=== PATIENT | male | born 1950 | race Caucasian/White ===

== ENCOUNTER 2018-10-17 08:32 | Day surgery (SDC) | payer MEDICARE ==
[2018-10-17] MEDS ORDERED: CEFAZOLIN 1GM (PREMIX IV) 1 GM/50 ML BAG ONE (09:12)
[2018-10-17] MEDS ORDERED: NA CHLORIDE 0.9% 1,000 ML ONE (09:12)
[2018-10-17] MEDS ORDERED: LIDOCAINE 1% W/EPI 1:100,000 MDV 50 ML VIAL ONE (09:28)
[2018-10-17 09:56] LABS: Urine Appearance CLEAR; Urine Bilirubin NEGATIVE (NEG); Urine Blood NEGATIVE (NEG); Urine Color YELLOW; Urine Glucose NEGATIVE (NEG); Urine Protein NEGATIVE (NEG); Urine Urobilinogen 0.2 mg/dL (0.2-1.0)
--- OUTSIDE RECORDS SUMMARY | 2018-10-17 10:00 | XMS REPORT | Continuity of Care Document ---
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 Juvenile Resolved 04/14/20 Problem 10/01/2017 Data periodontitis<sup>8 15 migrated Medical </sup> from [facility]ity on 05/07/15. 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 03/28/20 Condition 04/14/2015 DIABETES 15 Medical Group DIABETIC PERIPHERAL Active 03/28/20 Condition 04/14/2015 NEUROPATHY 15 Medical Group DIABETES MELLITUS, Active 03/28/20 Condition 04/14/2015 MH TYPE II, 15 Medical CONTROLLED, W/RENAL Group COMPS KIDNEY DISEASE, Active 03/28/20 Condition 04/14/2015 CHRONIC, STAGE III 15 Medical Group RETINOPATHY, Active 03/28/20 Condition 04/14/2015 DIABETIC, 15 Medical BACKGROUND Group DIABETES MELLITUS, Active 03/28/20 Condition 04/14/2015 MH TYPE II, 15 Medical CONTROLLED, Group W/OPHTHALMIC COMPS URINARY TRACT Active 03/28/20 Condition 04/14/2015 INFECTION 15 Medical Group BENIGN PROSTATIC Active 03/28/20 Condition 04/14/2015 HYPERTROPHY, WITH 15 Medical OBSTRUCTION Group Benign prostatic Resolved 03/28/20 Problem 10/01/2017 Data hypertrophy with 15 migrated Medical outflow from [facility] obstruction<sup>1, Centricity 2</sup> on 04/09/15. Chronic kidney Active 03/28/20 Problem 10/01/2017 Data disease stage 15 migrated Medical 3<sup>3</sup> from [facility]ricity on 04/09/15. Diabetic oculopathy Resolved 03/28/20 Problem 10/01/2017 Data MH associated with 15 migrated Medical type 2 diabetes from [facility] mellitus<sup>4</sup Centricity > on 04/09/15. Diabetic peripheral Active 03/28/20 Problem 10/01/2017 Data neuropathy<sup>5</s 15 migrated Medical up> from [facility] Centricity on 04/09/15. Diabetic Resolved 03/28/20 Problem 10/01/2017 Data polyneuropathy<sup> 15 migrated Medical 6</sup> from [facility] Centricity on 04/09/15. Nonproliferative Resolved 03/28/20 Problem 09/17/2017 Data diabetic 15 migrated Medical retinopathy<sup>9</ from [facility] sup> Centricity on 04/09/15. Urinary tract Active 03/28/20 Problem 09/17/2017 Data infectious 15 migrated Medical disease<sup>11, from [facility] 12</sup> Centricity on 04/09/15. Benign prostatic Resolved 03/28/20 Problem 04/14/2018 Data hypertrophy with 15 migrated Medical outflow from [facility] obstruction<sup>3, Centricity 4</sup> on 04/09/15. Chronic kidney Active 03/28/20 Problem 04/14/2018 Data disease stage 15 migrated Medical 3<sup>7</sup> from [facility]ricity on 04/09/15. Diabetic oculopathy Active 03/28/20 Problem 04/14/2018 Data MH associated with 15 migrated Medical type 2 diabetes from [facility] mellitus<sup>8</sup Centricity > on 04/09/15. Diabetic peripheral Active 03/28/20 Problem 04/14/2018 Data neuropathy<sup>9</s 15 migrated Medical up> from [facility] Centricity on 04/09/15. Diabetic Resolved 03/28/20 Problem 04/14/2018 Data polyneuropathy<sup> 15 migrated Medical 10</sup> from [facility] Centricity on 04/09/15. Nonproliferative Resolved 03/28/20 Problem 04/14/2018 Data diabetic 15 migrated Medical retinopathy<sup>14< from [facility] /sup> Centricity on 04/09/15. Urinary tract Active 03/28/20 Problem 04/14/2018 Data infectious 15 migrated Medical disease<sup>17, from [facility] 18</sup> Centricity on 04/09/15. Nonproliferative Resolved 03/28/20 Problem 10/01/2017 Data diabetic 15 migrated Medical retinopathy<sup>10< from [facility] /sup> Centricity on 04/09/15. Urinary tract Active 03/28/20 Problem 10/01/2017 Data infectious 15 migrated Medical disease<sup>13, from [facility] 14</sup> Centricity on 04/09/15. LOWER LIMB Active 01/17/20 Condition 04/14/2015 AMPUTATION, FOOT 15 Medical Group RENAL FAILURE, Inactive 01/17/20 Condition 04/14/2015 ACUTE 15 Medical Group Acute renal failure Resolved 01/17/20 Problem 04/14/2018 Data syndrome<sup>1, 15 migrated Medical 2</sup> from [facility] Centricity on 03/04/15. LT FOOT INFECTED Active 12/27/19 [place] 15 [place] DIABETIC FOOT Active 12/27/19 [place] INFECTION 15 Land CELLULITIS/ABSCESS, Inactive 11/06/19 Condition 04/14/2015 TOE NOS 15 [facility] Group Cellulitis and Resolved 11/06/19 Problem 04/14/2018 Data abscess of 15 migrated Medical toe<sup>5, 6</sup> from [facility] on 03/04/15. SINUSITIS, ACUTE Inactive 11/15/19 Condition 04/14/2015 14 Medical Group ERECTILE Active 11/27/19 Condition 04/14/2015 DYSFUNCTION 13 Medical Group Impotence<sup>7</dsouza Resolved 11/27/19 Problem 10/01/2017 Data p> 13 migrated Medical from [facility] Centricity on 03/01/15. Impotence<sup>11</s Resolved 11/27/19 Problem 04/14/2018 Data up> 13 migrated Medical from [facility] Centricity on 03/01/15. DIABETES MELLITUS Inactive Condition 04/14/2015 Medical Group PERIPHERAL Active Condition 04/14/2015 NEUROPATHY Medical Group DIABETES MELLITUS, Inactive Condition 04/14/2015 TYPE II, Medical UNCONTROLLED Group DIABETES Inactive Condition 04/14/2015 MELLITUS,TYPE Medical II,UNCONTROLLED Group W/NEURO COMPLICATIONS Diabetes Resolved Problem 04/14/2018 Medical Group,[facility] [place] HTN - Hypertension Resolved Problem 04/14/2018 Medical Group, [place] Neurologic disorder Resolved Problem 09/17/2017 Data associated with migrated Medical type 2 diabetes from [facility] mellitus<sup>8</sup Centricity > on 03/01/15. Neuropathic pain Resolved Problem 04/14/2018 Medical Group, [place] Obesity Active Problem 04/14/2018 Medical Group Peripheral nerve Resolved Problem 09/17/2017 Data disease<sup>10</sup migrated Medical > from [facility] Centricity on 03/01/15. Skin cancer Resolved Problem 04/14/2018 Medical Group, [place] Carcinomas, basal Active Problem 04/14/2018 cell Medical Group Low HDL (<span Active Problem 04/14/2018 ID="[id number]">C Medical onfirmed</span>) Group Status post Active Problem 04/14/2018 transmetatarsal Medical amputation of left Group foot Mixed Active Problem 04/14/2018 hyperlipidemia Medical Group Foot neuralgia Active Problem 04/14/2018 Medical Group Neurologic disorder Resolved Problem 04/14/2018 Data MH associated with migrated Medical type 2 diabetes from [facility] mellitus<sup>13</dsouza Centricity p> on 03/01/15. Peripheral nerve Active Problem 04/14/2018 Data disease<sup>15</sup migrated Medical > from [facility] Centricity on 03/01/15. Type II diabetes Resolved Problem 04/14/2018 Data mellitus migrated Medical uncontrolled<sup>16 from [facility] </sup> Centricity on 03/01/15. Neurologic disorder Resolved Problem 10/01/2017 Data associated with migrated Medical type 2 diabetes from [facility] mellitus<sup>9</sup Centricity > on 03/01/15. Peripheral nerve Resolved Problem 10/01/2017 Data disease<sup>11</sup migrated Medical > from [facility] Centricity on 03/01/15. Type II diabetes Resolved Problem 10/01/2017 Data mellitus migrated Medical uncontrolled<sup>12 from [facility] </sup> Centricity on 03/01/15. ADMINISTRTVE Active Sugar ENCOUNT NOS [place] Medications Medication Details Route Status Patient Ordering Order Source Instructions Provider Date gabapentin 300 MG 300 mg=1 cap, Active 04/11/ Oral Capsule PO, BID, # 180 2018 Medical cap, 1 Group Refill(s), Pharmacy: [facility] 546 Multi Vitamin+ 0 Refill(s) Active 02/21/ 2018 Medical Group gabapentin 300 MG 300 mg=1 cap, Active 09/28/ MH Oral Capsule PO, BID, 2017 Medical increase by 1 Group weekly if needed up to qid., # 180 cap, 1 Refill(s), Pharmacy: [facility] 546 metroNIDAZOLE 250 250 mg=1 tab, Active MH mg oral tablet PO, TID, X 7 2016 Medical day, # 21 tab, 0 Group Refill(s), Pharmacy: [facility] 546 Haylee-D 12 Hour 1 tab, PO, Q12H, Active Allergy & 0 Refill(s) 2016 Medical Congestion Group AMOXICILLIN 250 1 by mouth twice Active MG CAPS daily 2014 Medical Group ACETAMINOPHEN-COD 1 BY MOUTH Active EINE #3 300-30 MG NEEDED FOR PAIN 2014 Medical TABS Group CIPRO 500 MG TABS 1 tablet q18 No Longer 03/28/ hours Active 2014 Medical Group Amoxicillin 500 1 tab, PO, Q12H, Active Sugar MG / Clavulanate # 20 tab, 0 2014 [place] 125 MG Oral Refill(s) Tablet [Augmentin 500-mg] Insulin Syringes 1 syr, SUB-Q, Active Sugar (U 100) ONCALL, # 100 2014 [place] syr, 0 Refill(s) insulin isophane 10 unit, SUB-Q, Active Sugar human recombinant Q12H, # 10 ml, 0 2014 [facility] 100 units/mL Refill(s) subcutaneous injection saxagliptin 2.5 2.5 mg=1 tab, Active Sugar MG Oral Tablet PO, Daily, # 30 2014 Land [Onglyza] tab, 0 Refill(s) tamsulosin 0.4 mg 0.4 mg=1 cap, Active Sugar oral capsule PO, After 2014 Land Dinner, # 30 cap, 0 Refill(s) metoprolol 50 mg=1 tab, PO, Active Sugar tartrate 50 mg BID, # 60 tab, 1 2014 [facility] oral tablet Refill(s) simvastatin 10 mg 10 mg=1 tab, PO, Active Sugar oral tablet Bedtime, # 30 2014 [facility] tab, 0 Refill(s) Aspirin 81 MG 81 mg=1 tab, PO, Active Sugar Enteric Coated Daily, # 0 tab, 2014 [facility] Tablet 0 Refill(s) Amoxicillin 500 1 tab, PO, Q12H, Inactive Sugar MG / Clavulanate # 20 tab, 0 2014 [facility] 125 MG Oral Refill(s) Tablet [Augmentin 500-mg] NS 1,000 mL 1,000 mL, Rate: Inactive Sugar 100 ml/hr, 2014 [facility] Infuse over: 10 hr, Route: IV, Dosing Weight 92.1 kg, Total Volume: 1,000, Start date: 01/08/15 12:10:00, Duration: 30 day, Stop date: 02/07/15 12:09:00 NOVOLIN R RELION 10 u 2x daily Active 100 UNIT/ML SOLN 2014 Medical Group METOPROLOL 1 BY MOUTH DAILY Active TARTRATE 50 MG 2014 Medical TABS Group METOPROLOL 1 BY MOUTH DAILY Active TARTRATE 50 MG 2014 Medical TABS Group NOVOLIN N RELION 10 U 2x daily Active 100 UNIT/ML SUSP 2014 Medical Group METOPROLOL 1 BY MOUTH DAILY Active TARTRATE 50 MG 2014 Medical TABS Group metoprolol 100 mg, 1 tab, No Longer Sugar tartrate Route: PO, Drug Active 2014 [place] form: TAB, [id number], Dosing Weight 92.1, kg, Start date: 01/07/15 12:00:00, Duration: 30 day, Stop date: 02/06/15 0:00:00Notes: (Same as: Lopressor) Amoxicillin 500 1 tab, Route: No Longer Sugar MG / Clavulanate PO, Drug Form: Active 2014 [facility] 125 MG Oral TAB, Dosing Tablet [Augmentin Weight 92.1, kg, 500-mg] Q12H, Start date: 01/06/15 21:00:00, Duration: 30 day, Stop date: 02/05/15 9:00:00Notes: With food. (Same as: Augmentin 500) multivitamin 1 tab, Route: No Longer Sugar PO, Drug Form: Active 2014 [facility] TAB, Dosing Weight 92.1, kg, Daily, Start date: 01/06/15 9:00:00, Duration: 30 day, Stop date: 02/04/15 9:00:00Notes: (Same as:One Tab Daily, Tab-A-Porter + Beta Carotene) Give with food. ascorbic acid 500 mg, 1 tab, No Longer Sugar Route: PO, Drug Active 2014 [place] form: TAB, BID, Dosing Weight 92.1, kg, Start date: 01/06/15 9:00:00, Duration: 30 day, Stop date: 02/04/15 17:00:00Notes: (Same as: Vitamin C) Zinc Sulfate 220 mg, 1 cap, No Longer Sugar Route: PO, Drug Active 2014 [place] form: CAP, Daily, Dosing Weight 92.1, kg, Start date: 01/06/15 9:00:00, Duration: 30 day, Stop date: 02/04/15 9:00:00Notes: (Zinc sulfate capsule) - 220 mg Zinc sulfate=50 mg elemental zinc Same as Zinc Sulfate Zosyn 3.375 gm, Route: No Longer Sugar IVPB, [id number], Active 2014 Land Dosing Weight 92.1, kg, CrCl Notes: (Same as: Zosyn) Dosing based on Piperacillin component MEDICATION WASTE Product Size: 3375 mg Product Wasted: ___ mg Flomax 0.4 mg, 1 cap, No Longer Sugar Route: PO, Drug Active 2014 [facility] form: CAP, After Dinner, Dosing Weight 92.1, kg, Start date: 01/05/15 17:00:00, Duration: 30 day, Stop date: 02/03/15 17:00:00Notes: (Same As: Flomax) "Do Not Crush" metoprolol 50 mg, 1 tab, No Longer Sugar tartrate Route: PO, Drug Active 2014 [place] form: TAB, Q12H, Dosing Weight 92.1, kg, Start date: 01/03/15 21:00:00, Stop date: 02/02/15 9:00:00Notes: (Same as: Lopressor) Hydralazine 20 mg, 1 mL, No Longer Sugar Route: IVP, Drug Active 2014 [place] form: INJ, Q4H, Dosing Weight 92.1, kg, PRN Other -See Comment, Start date: 01/02/15 21:13:00, Stop date: 02/01/15 21:12:00, SBP > 170 | Other -See CommentNotes: (Same as: Apresoline) Push over 5 minutes Labetalol 20 mg, 4 mL, No Longer Sugar Route: IV, Drug Active 2014 [place] form: INJ, Q4H, Dosing Weight 92.1, kg, PRN Other -See Comment, Start date: 01/02/15 21:13:00, Duration: 30 day, Stop date: 02/01/15 21:12:00, SBP > 165Notes: (Same as: Normodyne, Trandate) Push over 2 minutes Give bolus over 2-3 minutes. Amoxicillin 875 875 mg=1 tab, No Longer Sugar MG / Clavulanate PO, Q12H, # 28 Active 2014 [facility] 125 MG Oral tab, 0 Refill(s) Tablet [Augmentin 875-mg] NS 1,000 mL 1,000 mL, Rate: No Longer Sugar 125 ml/hr, Active 2014 [facility] Infuse over: 8 hr, Route: IV, Dosing Weight 92.1 kg, Total Volume: 1,000, Start date: 01/02/15 14:38:00, Duration: 30 day, Stop date: 02/01/15 14:37:00 insulin detemir 10 unit, 0.1 mL, No Longer Sugar Route: SUB-Q, Active 2014 [place] Drug form: INJ, Bedtime, Dosing Weight 92.1, kg, Start date: 01/01/15 21:00:00, Duration: 30 day, Stop date: 01/30/15 21:00:00Notes: Same as Levemir Do not hold insulin without contacting prescriber "single patient use only" Metformin 1,000 mg, 2 tab, No Longer Sugar hydrochloride Route: PO, Drug Active 2014 [place] 1000 MG Oral form: TAB, BID, Tablet Dosing Weight 92.1, kg, Priority: NOW, Start date: 01/01/15 12:01:00, Duration: 30 day, Stop date: 01/31/15 9:00:00Notes: (Same as: Glucophage) Take with meal Lisinopril 20 mg, 1 tab, No Longer Sugar Route: PO, Drug Active 2014 [place] form: TAB, Daily, Dosing Weight 92.1, kg, Start date: 12/31/14 9:00:00, Duration: 30 day, Stop date: 01/29/15 9:00:00Notes: (Same as: Prinivil, Zestril) Lisinopril 10 mg, 2 tab, No Longer Sugar Route: PO, Drug Active 2014 [place] form: TAB, Daily, Dosing Weight 92.1, kg, Priority: NOW, Start date: 12/30/14 12:25:00, Duration: 30 day, Stop date: 01/29/15 9:00:00Notes: (Same as: Prinivil, Zestril) Levemir 12 unit, 0.12 No Longer Sugar mL, Route: Active 2014 SUB-Q, Drug form: INJ, Bedtime, Dosing Weight 92.1, kg, Start date: 12/29/14 21:00:00, Duration: 30 day, Stop date: 01/27/15 21:00:00Notes: Same as Levemir Do not hold insulin without contacting prescriber "single patient use only" Levemir 8 unit, 0.08 mL, No Longer Sugar Route: SUB-Q, Active 2014 Drug form: INJ, Bedtime, Dosing Weight 92.1, kg, Start date: 12/28/14 21:00:00, Duration: 30 day, Stop date: 01/26/15 21:00:00Notes: Same as Levemir Do not hold insulin without contacting prescriber "single patient use only" Vancomycin 2 gm, 500 mL, No Longer Sugar Route: IVPB, Active 2014 Drug form: SOLN, Q12H, Dosing Weight 92.1, kg, Start date: 12/28/14 15:00:00, Duration: 30 day, Stop date: 01/27/15 3:00:00Notes: Same as: Vancocin Infusion rate 2001 mg: infuse over 2.5 hours Protonix 40 mg, 1 tab, No Longer Sugar Route: PO, Drug Active 2014 [place] form: ECTAB, Before Breakfast, Start date: 12/28/14 7:30:00, Duration: 30 day, Stop date: 01/26/15 7:30:00Notes: Tablet should not be chewed or crushed. (Same as: Protonix) Acetaminophen 1,000 mg, 100 Inactive Sugar mL, Route: IVPB, 2014 Drug form: INJ, ONCE, Dosing Weight 92.1, kg, PRN Pain Score 1-3, Start date: 12/27/14 17:10:00, Duration: 1 doses or times, Stop date: Limited # of timesNotes: Infuse over 15 minutes Do not exceed 4gm/day of acetaminophen Fentanyl 25 microgram, No Longer Sugar 0.5 mL, Route: Active 2014 IVP, Drug form: INJ, Q5Min, Dosing Weight 92.1, kg, PRN Pain Score 4-6, Start date: 12/27/14 17:10:00, Duration: 4 doses or times, Stop date: Limited # of timesNotes: (Same as: Sublimaze) Preservative free. Oxycodone 5 mg, 1 tab, No Longer Sugar Route: PO, Drug Active 2014 form: TAB, Q4H, Dosing Weight 92.1, kg, PRN Pain Score 4-6, Start date: 12/27/14 17:10:00, Duration: 30 day, Stop date: 01/26/15 17:09:00Notes: (Same as: Roxicodone) Diphenhydramine 12.5 mg, 0.25 No Longer Sugar mL, Route: IVP, Active 2014 Drug form: INJ, Q6H, Dosing Weight 92.1, kg, PRN Itching, Start date: 12/27/14 17:10:00, Duration: 30 day, Stop date: 01/26/15 17:09:00Notes: (Same as: Benadryl) Naloxone 0.1 mg, 0.25 mL, No Longer Sugar Route: SUB-Q, Active 2014 Drug form: INJ, Q6H, Dosing Weight 92.1, kg, PRN Itching, Start date: 12/27/14 17:10:00, Duration: 30 day, Stop date: 01/26/15 17:09:00Notes: Same as Narcan Ondansetron 4 mg, 2 mL, No Longer Sugar Route: IVP, Drug Active 2014 [place] form: INJ, ONCE, Dosing Weight 92.1, kg, PRN Nausea & Vomiting, Start date: 12/27/14 17:10:00Notes: (Same as: Zofran) Morphine 4 mg, 2 mL, No Longer Sugar Route: IVP, Drug Active 2014 [place] form: INJ, Q5Min, Dosing Weight 92.1, kg, PRN Pain Score 7-10, Start date: 12/27/14 17:10:00, Duration: 3 doses or times, Stop date: Limited # of timesNotes: (Same as:MORPhine Sulfate) Meperidine 12.5 mg, 0.25 No Longer Sugar mL, Route: IVP, Active 2014 Drug form: INJ, Q30Min, Dosing Weight 92.1, kg, PRN Other -See Comment, For shivering, Start date: 12/27/14 17:10:00, Duration: 2 doses or times, Stop date: Limited # of timesNotes: (Same as: Demerol) "Use Precaution in Elderly, Seizure disorders, and Renal impairment" Flumazenil 0.2 mg, 2 mL, No Longer Sugar Route: IVP, Drug Active 2014 [place] form: INJ, PRN, Dosing Weight 92.1, kg, PRN Benzodiazepine Reversal, Initial dose, Start date: 12/27/14 17:10:00, Duration: 30 day, Stop date: 01/26/15 17:09:00Notes: (Same as: Romazicon) Promethazine 12.5 mg, 0.5 mL, No Longer Sugar Route: IM, Drug Active 2014 [place] form: INJ, ONCE, Dosing Weight 92.1, kg, PRN Nausea & Vomiting, Start date: 12/27/14 17:10:00Notes: Do not give IV push. (Same as: Phenergan) Sodium Chloride 250 mL, Rate: On No Longer Sugar 0.9% (titrate) call for use Active 2014 Land 250 mL with blood product administration, Dosing Weight 92.1, kg, Route: IV, Total Volume: 250, Start Date: 12/27/14 9:28:00, Duration: 30 day, Stop date: 01/26/15 9:27:00, Replace Every: 24 hr Protonix 40 mg, 1 tab, Inactive Sugar Route: PO, Drug 2014 [facility] form: ECTAB, Before Breakfast, Dosing Weight 92.1, kg, Start date: 12/27/14 7:30:00, Duration: 30 day, Stop date: 01/25/15 7:30:00Notes: Tablet should not be chewed or crushed. (Same as: Protonix) Vancomycin 1.5 gm, 250 mL, No Longer Sugar Route: IVPB, Active 2014 Drug form: INJ, Q12H, Dosing Weight 100.9, kg, Start date: 12/27/14 2:00:00, Duration: 30 day, Stop date: 01/25/15 14:00:00Notes: Same as: Vancocin-NS (premixed) Infusion rate 2001 mg: infuse over 2.5 hours Cephalexin 500 MG 1,000 mg=2 cap, No Longer Sugar Oral Capsule PO, BID, Active 2014 Land [Keflex] indefinate order, 0 Refill(s)Special Instructions: indefinate order Metformin 1,000 mg=1 tab, No Longer Sugar hydrochloride PO, Daily, # 30 Active 2014 [facility] 1000 MG Oral tab, 0 Refill(s) Tablet saxagliptin 5 MG 5 mg=1 tab, PO, No Longer Sugar Oral Tablet Daily, # 30 tab, Active 2014 Land [Onglyza] 0 Refill(s) Lovenox 40 mg, 0.4 mL, No Longer Sugar Route: SUB-Q, Active 2014 Drug form: INJ, [id number], Dosing Weight 92.1, kg, Start date: 12/26/14 19:00:00, Duration: 30 day, Stop date: 01/24/15 13:00:00Notes: (Same as: Lovenox) Vancomycin 1 gm, Route: Inactive Sugar IVP, Q24H, 2014 Dosing Weight 100.9, kg, Start date: 12/26/14 18:00:00, Duration: 30 day, Stop date: 01/24/15 18:00:00 Zosyn 3.375 gm, Route: Inactive Sugar IVPB, Drug form: 2014 [place] PDR/INJ, Q6H, Dosing Weight 100.9, kg, Priority: STAT, Start date: 12/26/14 17:44:00, Duration: 30 day, Stop date: 01/25/15 12:00:00 Saline Flush 0.9% 10 ml, Route: No Longer Sugar IVP, Drug Form: Active 2014 [place] INJ, Dosing Weight 92.1, kg, PRN, PRN Line Flush, Start date: 12/26/14 17:44:00, Duration: 30 day, Stop date: 01/25/15 17:43:00Notes: (Same as: BD Posiflush) Sodium Chloride 1,000 mL, Rate: No Longer Sugar 0.154 MEQ/ML 125 ml/hr, Active 2014 Injectable Infuse over: 8 Solution hr, Route: IV, Dosing Weight 92.1 kg, Total Volume: 1,000, Start date: 12/26/14 17:44:00, Duration: 30 day, Stop date: 01/25/15 17:43:00 Morphine 4 mg, 2 mL, No Longer Sugar Route: IVP, Drug Active 2014 [place] form: INJ, Q3H, Dosing Weight 100.9, kg, PRN Pain Score 7-10, Start date: 12/26/14 17:44:00, Duration: 30 day, Stop date: 01/25/15 17:43:00Notes: (Same as:MORPhine Sulfate) Ondansetron 4 mg, 2 mL, No Longer Sugar Route: IVP, Drug Active 2014 [place] form: INJ, Q8H, Dosing Weight 92.1, kg, PRN Nausea & Vomiting, Start date: 12/26/14 17:44:00, Duration: 30 day, Stop date: 01/25/15 17:43:00Notes: (Same as: Zofran) Acetaminophen 650 mg, 2 tab, No Longer Sugar Route: PO, Drug Active 2014 [place] form: TAB, Q4H, Dosing Weight 92.1, kg, PRN Pain 1-3/Temp > 100.4 F, Start date: 12/26/14 17:44:00, Duration: 30 day, Stop date: 01/25/15 17:43:00Notes: Do not exceed 4 gm/day. (Same as: Tylenol) Acetaminophen 325 1 tab, Route: No Longer Sugar MG / Hydrocodone PO, Drug Form: Active 2014 [place] Bitartrate 5 MG TAB, Dosing Oral Tablet Weight 92.1, kg, Q4H, PRN Pain Score 1-3, Start date: 12/26/14 17:44:00, Duration: 30 day, Stop date: 01/25/15 17:43:00Notes: (Same as: [place] 325/5) Do not exceed 4gm/day of acetaminophen. Acetaminophen 325 1 tab, Route: No Longer Sugar MG / Hydrocodone PO, Drug Form: Active 2014 [place] Bitartrate 10 MG TAB, Dosing Oral Tablet Weight 92.1, kg, Q4H, PRN Pain Score 4-6, Start date: 12/26/14 17:44:00, Duration: 30 day, Stop date: 01/25/15 17:43:00Notes: Do not exceed 4gm/day of acetaminophen. (Same as: [place] 325/10) Insulin, Aspart, 4 unit, 0.04 mL, No Longer Sugar Human Route: SUB-Q, Active 2014 [place] Drug form: SOLN, Bedtime, Dosing Weight 92.1, kg, PRN Blood Glucose Results, Start date: 12/26/14 17:42:00, Duration: 30 day, Stop date: 01/25/15 17:41:00Notes: Roll in palms of hands gently; Do not shake vigorously. (Same as: NovoLOG) "single patient use only" Stable for 28 days at room temperature. Expires in days from [facility] te Glucagon 1 mg, Route: IM, No Longer Sugar Drug form: Active 2014 [place] PDR/INJ, PRN, Dosing Weight 92.1, kg, PRN Blood Glucose Results, Start date: 12/26/14 17:42:00, Duration: 30 day, Stop date: 01/25/15 17:41:00 Dextrose 50% 25 gm, 50 mL, No Longer Sugar Syringe Route: IVP, Drug Active 2014 [place] Form: INJ, Dosing Weight 92.1, kg, PRN, PRN Blood Glucose Results, Start date: 12/26/14 17:42:00, Duration: 30 day, Stop date: 01/25/15 17:41:00 Zosyn 3.375 gm, Route: No Longer Sugar IVPB, Drug form: Active 2014 Land PDR/INJ, Q8H, Dosing Weight 100.9, kg, Start date: 12/26/14 16:00:00, Stop date: 01/25/15 14:00:00Notes: (Same as: Zosyn) Dosing based on Piperacillin component Clindamycin 900 mg, 6 mL, No Longer Sugar Route: IVPB, Active 2014 [place] Drug form: INJ, Q8H, Dosing Weight 100.9, kg, Priority: STAT, Start date: 12/26/14 15:25:00, Stop date: 01/25/15 10:00:00Notes: Same as: Cleocin Sodium Chloride 1,000 mL, 1,000 Inactive Sugar 0.154 MEQ/ML ml/hr, Infuse 2014 [facility] Injectable Over: 1 hr, Solution Route: IV, 1,000, Drug form: INJ, ONCE, Priority: STAT, Dosing Weight 100.9 kg, Start date: 12/26/14 15:25:00, Duration: 1 doses or times, Stop date: 12/26/14 15:25:00 Insulin regular 6 unit, 0.06 mL, Inactive Sugar Route: IVP, Drug 2014 [place] form: SOLN, ONCE, Dosing Weight 100.9, kg, Start date: 12/26/14 14:36:00, Stop date: 12/26/14 14:36:00Notes: (Same as: Humulin R) Roll in palms of hands gently; Do not shake vigorously. "single patient use only" (Restricted to patients requiring a dose > 60 units) Stable for 28 days at room temperature Expires in days from Da te Insulin regular 10 unit, Route: Inactive Sugar IVP, ONCE, 2014 [facility] Dosing Weight 100.9, kg, Priority: STAT, Start date: 12/26/14 14:06:00, Stop date: 12/26/14 14:06:00 NS 1,000 mL 1,000 mL, Rate: Inactive Sugar 1,000 ml/hr, 2014 [facility] Infuse over: 1 hr, Route: IV, Dosing Weight 100.9 kg, Total Volume: 1,000, Start date: 12/26/14 13:48:00, Duration: 1 doses or times, Stop date: 12/26/14 14:47:00, Bolus DoseSpecial Instructions: Bolus Dose Vancomycin 1 gm, Route: Inactive Sugar IVPB, ONCE, 2014 [facility] Dosing Weight 100.9, kg, Priority: STAT, Start date: 12/26/14 13:12:00, Stop date: 12/26/14 13:12:00 Zosyn 3.375 gm, Route: Inactive Sugar IVPB, Drug form: 2014 [place] PDR/INJ, ONCE, Dosing Weight 100.9, kg, Priority: STAT, Start date: 12/26/14 13:12:00, Stop date: 12/26/14 13:12:00 KEFLEX 500 MG 2 capsule 2 No Longer CAPS times a day Active 2014 Medical Group METFORMIN HCL ER 1-2 tablet 2x No Longer 500 MG [id number] daily Active 2014 Medical Group METFORMIN HCL ER 1-2 tablet 2x No Longer 500 MG [id number] daily Active 2014 [facility] METFORMIN HCL ER 1-2 tablet 2x No Longer 500 MG [id number] daily Active 2014 [facility] METOPROLOL 2 tablet daily No Longer SUCCINATE ER 100 Active 2014 Medical MG [id number] Group KOMBIGLYZE XR 1 tablet daily No Longer 5-1000 MG Active 2014 Medical [id number] Group METFORMIN HCL ER 1 tablet PO Active (OSM) 1000 MG daily with first 2014 Medical [id number] meal of day with Group food ONGLYZA 5 MG TABS 1 tablet PO Active daily 2014 [facility] METOPROLOL 2 tablet daily No Longer SUCCINATE ER 100 Active 2014 Medical MG [id number] Group KEFLEX 500 MG 1 tablet PO TID No Longer CAPS for 10 days Active 2014 [facility] Group ANTISEPTIC SKIN Cleanse area BID Active CLEANSER 4 % SOLN after warm soak 2014 [facility] Group TOTAL GLUCOSE 1 BY MOUTH DAILY No Longer CONTROL 500 MG Active 2013 [facility] AUGMENTIN 875-125 1 tablet PO BID No Longer 11/15/ MG TABS for 10 days Active 2013 [facility] METFORMIN HCL 500 1 PO bid No Longer 11/15/ MG TABS Active 2013 [facility] QNASL 80 MCG/ACT 2 sprays to each No Longer AERS nostril daily Active 2013 [facility] METFORMIN HCL 500 1 PO bid Active 11/15/ MG TABS 2013 [facility] AUGMENTIN 875-125 1 tablet PO BID Active 11/15/ MG TABS for 10 days 2014 [facility] METFORMIN HCL 500 1 PO bid No Longer 11/15/ MG TABS Active 2013 [facility] METFORMIN HCL 500 1 PO bid No Longer 11/15/ MG TABS Active 2013 [facility] GLIMEPIRIDE 2 MG 1 PO daily No Longer TABS Active 2012 [facility] CIALIS 5 MG TABS 1 daily Active 2013 [facility] Allergies, Adverse Reactions, Alerts Substance Category Reaction Severity Reaction Status Date Comments Source type Reported SULFA Drug SULFA MH allergy Medical Group sulfa Assertion Drug Active Data drugs<sup>1 allergy migrated Medical </sup> from [facility] on 05/01/15. Originally documented as SULFA. lisinopril< Assertion Mild Propensity Active headache MH sup>2</sup> to adverse Medical reactions Group to drug sulfa drugs Assertion Drug Active [place] allergy [place] Immunizations Immunization Date Site Status Last Updated Comments Source Given pneumococcal Right completed Deniz Result Comment: given by [facility] 23-valent 7 Deltoid Group vaccine<sup>1</s patiet tolerated well no adverse reaction up> influenza virus Left completed Garg Result Medical vaccine, 6 Deltoid Comment: NDC: Group inactivated<sup> [id number] 2</sup> No adverse reactions noted. pneumococcal Right completed [facility]arg Result Medical 13-valent 6 Deltoid Comment: NDC: Group vaccine<sup>3</s up> No adverse reactions noted. pneumococcal Not Given Medical 23-valent 5 Group, vaccine [place] Results Order Name Results Value Reference Date Interpretation Comments Source Range Urinalysis UA COLOR Light 04/14 [facility] Group Urinalysis BACTERIA URN Occasional 04/14 [facility] Chemistry SODIUM 138 mmol/L 135 - 143 03/28 [facility] Chemistry POTASSIUM 4.4 mmol/L 3.3 - 5.0 03/28 [facility] Chemistry SODIUM 138 mmol/L 135 - 143 03/28 [facility] Chemistry POTASSIUM 4.4 mmol/L 3.3 - 5.0 03/28 [facility] Chemistry ALBUMIN 3.5 g/dL 3.5 - 5.0 03/28 [facility] Chemistry CALCIUM 8.8 mg/dL 8.6 - 9.8 03/28 [facility] Chemistry CREATININE 1.35 mg/dL 0.46 - 03/28 1. Medical Group Chemistry BUN 27 mg/dL 10 - 22 03/28 [facility] Chemistry ALK PHOS 49 U/L 32 - 96 03/28 [facility] Chemistry SGOT (AST) 17 U/L 10 - 42 03/28 [facility] Chemistry SGPT (ALT) 15 U/L 11 - 43 03/28 [facility] Chemistry CHOLESTEROL 137 mg/dl 120 - 200 03/28 [facility] Chemistry HDL 37 mg/dl 26 - 62 03/28 [facility] Chemistry SODIUM 138 mmol/L 135 - 143 03/28 [facility] Group Chemistry POTASSIUM 4.4 mmol/L 3.3 - 5.0 03/28 [facility] Group Chemistry SODIUM 138 mmol/L 135 - 143 03/28 [facility] Chemistry POTASSIUM 4.4 mmol/L 3.3 - 5.0 03/28 [facility] Chemistry ALBUMIN 3.5 g/dL 3.5 - 5.0 03/28 [facility] Chemistry CALCIUM 8.8 mg/dL 8.6 - 9.8 03/28 [facility] Chemistry CREATININE 1.35 mg/dL 0.46 - 03/28 . Medical Group Chemistry BUN 27 mg/dL - 03/28 [facility] Chemistry ALK PHOS 49 U/L 32 - 96 03/28 [facility] Group Chemistry SGOT (AST) 17 U/L 10 - 42 03/28 [facility] Group Chemistry SGPT (ALT) 15 U/L 11 - 43 03/28 [facility] Chemistry CHOLESTEROL 137 mg/dl 120 - 200 03/28 [facility] Chemistry HDL 37 mg/dl 26 - 62 03/28 [facility] Chemistry LDL 84 mg/dl 0 - 130 03/28 [facility] Chemistry TSH 2.79 0.34 - 03/28 uIU/mL 5. Medical Group Chemistry LDL 84 mg/dl 0 - 130 03/28 [facility] Group Chemistry TSH 2.79 0.34 - 03/28 uIU/mL 5. Medical Group Chemistry SODIUM 140 mmol/L 135 - 143 01/16 [facility] Group Chemistry POTASSIUM 5.0 mmol/L 3.3 - 5.0 01/16 [facility] Chemistry SODIUM 140 mmol/L 135 - 143 01/16 [facility] Chemistry POTASSIUM 5.0 mmol/L 3.3 - 5.0 01/16 [facility] Chemistry BUN 77 mg/dL 01/16 [facility] Chemistry CREATININE 4.07 mg/dL 0.46 - 01/16 10.22 Medical Group Chemistry HGBA1C 8.1 % 3.0 - 6.0 01/16 [facility] Chemistry SODIUM 140 mmol/L 135 - 143 01/16 [facility] Chemistry POTASSIUM 5.0 mmol/L 3.3 - 5.0 01/16 [facility] Chemistry BUN 77 mg/dL - 01/16 [facility] Chemistry CREATININE 4.07 mg/dL 0.46 - 01/16 10.22 Medical Group Chemistry HGBA1C 8.1 % 3.0 - 6.0 01/16 [facility] Group CHEM PANEL eGFR 12 01/08 1Result Comment: The eGFR is calculated using the CKD-EPI formula. In most young, healthy individuals the eGFR will be >90 mL/ min/1.73m2. The eGFR declines with age. An eGFR of 60-89 may be normal in [place] mL/min/1. some populations, particularly the elderly, for whom the CKD-EPI formula has not been extensively validated. Use of the eGFR is not recommended in the following populations: [place] 3m2 Individuals with unstable creatinine concentrations, including patients and those with serious co-morbid conditions. Patients with extremes in muscle mass or diet. The data above are obtained from the National Kidney Disease Education Program (NKDEP) which additionally recommends that when the eGFR is used in patients with extremes of body mass index for purposes of drug dosing, the eGFR should be multiplied by the estimated BMI. CHEM PANEL Calcium Lvl 8.0 mg/dL 8.5 - 10.5 01/08 [place] CHEM PANEL CO2 20 meq/L 24 - 32 01/08 [place] CHEM PANEL AGAP 15.2 meq/L 10.0 - 01/08 [place] 20.0 [place] CHEM PANEL Chloride Lvl 109 meq/L 95 - 109 01/08 [place] CHEM PANEL Potassium Lvl 4.2 meq/L 3.5 - 5.1 01/08 [place] CHEM PANEL Sodium Lvl 140 meq/L 135 - 145 01/08 [place] CHEM PANEL Creatinine 4.6 mg/dL 0.5 - 1.4 01/08 [place] Lv [place] CHEM PANEL Glucose Lvl 213 mg/dL 70 - 99 01/08 4Interpretive Data: Adult reference range values reflect the clinical guidelines of the [place] [employer]. [place] CHEM PANEL BUN 34 mg/dL 7 - 22 01/08 [place] CHEM PANEL Magnesium Lvl 2.5 mg/dL 1.8 - 2.4 01/08 [place] CHEM PANEL Magnesium Lvl 2.3 mg/dL 1.8 - 2.4 01/07 [place] CHEM PANEL eGFR 12 01/07 2Result Comment: The eGFR is calculated using the CKD-EPI formula. In most young, healthy individuals the eGFR will be >90 mL/ min/1.73m2. The eGFR declines with age. An eGFR of 60-89 may be normal in [place] mL/min/1.7 some populations, particularly the elderly, for whom the CKD-EPI formula has not been extensively validated. Use of the eGFR is not recommended in the following populations: [place] 3m2 Individuals with unstable creatinine concentrations, including patients and those with serious co-morbid conditions. Patients with extremes in muscle mass or diet. The data above are obtained from the National Kidney Disease Education Program (NKDEP) which additionally recommends that when the eGFR is used in patients with extremes of body mass index for purposes of drug dosing, the eGFR should be multiplied by the estimated BMI. CHEM PANEL CO2 21 meq/L 24 - 32 01/07 [place] CHEM PANEL BUN 34 mg/dL 7 - 22 01/07 [place] CHEM PANEL Glucose Lvl 197 mg/dL 70 - 99 01/07 5Interpretive Data: Adult reference range values reflect the clinical guidelines of the [place] [employer]. [place] CHEM PANEL Calcium Lvl 8.0 mg/dL 8.5 - 10.5 01/07 [place] CHEM PANEL AGAP 15.1 meq/L 10.0 - 01/07 [place] 20.0 [place] CHEM PANEL Sodium Lvl 139 meq/L 135 - 145 01/07 [place] CHEM PANEL Creatinine 4.9 mg/dL 0.5 - 1.4 01/07 [place] CHEM PANEL Chloride Lvl 107 meq/L 95 - 109 01/07 [place] CHEM PANEL Potassium Lvl 4.1 meq/L 3.5 - 5.1 01/07 [facility] URINE AND UA Color Yellow Yellow 01/06 [facility] *NA* (01/06/15 5:17 PM) URINE AND UA Spec Grav <=1.005 <=1.030 01/06 [place] STOOL
*NA*< [place] br/>( 5 5:17 PM) URINE AND UA pH 5.5 5.0 - 8.0 01/06 STOOL [facility] URINE AND UA Ketones Negative Negative 01/06 [place] STOOL [facility] *NA* (01/06/15 5:17 PM) URINE AND UA Protein Negative Negative 01/06 [place] STOOL [place] (01/06/15 5:17 PM) URINE AND UA Turbidity Clear Clear 01/06 [place] STOOL [facility] (01/06/15 5:17 PM) URINE AND UA 0.2 EU/dL 0.1 - 1.0 01/06 [place] STOOL Urobilinogen /2014 [facility] URINE AND UA Blood Trace Negative 01/06 [place] *ABN* (01/06/15 5:17 PM) URINE AND UA Nitrite Negative Negative 01/06 [place] [facility] (01/06/15 5:17 PM) URINE AND UA Leuk Est Negative Negative 01/06 [place] [facility] (01/06/15 5:17 PM) URINE AND UA Glucose Negative Negative 01/06 [place] [facility] (01/06/15 5:17 PM) URINE AND UA Bili Negative Negative 01/06 [place] *NA* (01/06/15 5:17 PM) URINE AND UA WBC 0-2 /HPF None Seen 01/06 [place] STOOL /HPF [facility] URINE AND UA Bacteria Occasional None Seen 01/06 [place] STOOL /HPF /HPF [facility] URINE AND UA RBC 0-2 /HPF 0 - 2 01/06 [place] [facility] URINE AND UA Sq Epi Rare /LPF Few /LPF 01/06 [place] [facility] URINE AND Micro? Performed 01/06 [place] [facility] (01/06/15 5:17 PM) CARDIAC Total CK 49 unit/L 12 - 191 01/06 [place] [facility] HEMATOLOGY Sed Rate 113 mm/h 0 - 15 01/06 [facility] HEMATOLOGY MPV 7.7 fL 7.4 - 10.4 01/06 [facility] HEMATOLOGY Platelet 277 K/CMM 133 - 450 01/06 [facility] HEMATOLOGY RBC 3.63 M/CMM 4.70 - 01/06 [place] 6.10 /2014 [facility] HEMATOLOGY WBC 9.1 K/CMM 3.7 - 10.4 01/06 [facility] HEMATOLOGY Hgb 10.2 g/dL 14.0 - 01/06 [place] 18.0 /2014 [facility] HEMATOLOGY MCV 85.8 fL 80.0 - 01/06 [place] 94.0 /2014 [facility] HEMATOLOGY Hct 31.2 % 42.0 - 01/06 [place] 54.0 /2014 [facility] HEMATOLOGY RDW 15.7 % 11.5 - 01/06 [place] 14.5 [facility] HEMATOLOGY MCHC 32.6 g/dL 32.0 - 01/06 [place] 36.0 /2014 [place] HEMATOLOGY MCH 28.0 pg 27.0 - 01/06 [place] 31.0 /2014 [place] HEMATOLOGY Lymphocytes # 1.2 K/CMM 1.0 - 5.5 01/06 [place] HEMATOLOGY Monocytes # 1.0 K/CMM 0.0 - 0.8 01/06 [place] HEMATOLOGY Basophils # 0.1 K/CMM 0.0 - 0.2 01/06 [place] HEMATOLOGY Eosinophils # 0.3 K/CMM 0.0 - 0.5 01/06 [place] HEMATOLOGY Eosinophils 2.7 % 0.0 - 4.0 01/06 [place] HEMATOLOGY Segs-Bands # 6.6 K/CMM 1.5 - 8.1 01/06 [place] HEMATOLOGY Basophils 0.9 % 0.0 - 1.0 01/06 [place] HEMATOLOGY Lymphocytes 12.8 % 20.0 - 01/06 [place] 40.0 [place] HEMATOLOGY Segs 72.2 % 45.0 - 01/06 [place] 75.0 [place] HEMATOLOGY Monocytes 11.4 % 2.0 - 12.0 01/06 [place] IMMUNOLOGY LUIS Positive Negative 01/06 [place] *ABN* (01/06/15 12:40 PM) IMMUNOLOGY LUIS Interp Pattern 01/06 [place] speckled IMMUNOLOGY LUIS Titer 1:40 Negative 01/06 [place] *ABN* (01/06/15 12:40 PM) ELECTROLYTE Chloride Lvl 105 meq/L 95 - 109 01/06 [place] ELECTROLYTE Potassium Lvl 4.0 meq/L 3.5 - 5.1 01/06 [place] ELECTROLYTE Sodium Lvl 137 meq/L 135 - 145 01/06 [place] ELECTROLYTE Creatinine 5.1 mg/dL 0.5 - 1.4 01/06 [place] ELECTROLYTE BUN 31 mg/dL 7 - 22 01/06 [place] ELECTROLYTE Glucose Lvl 156 mg/dL 70 - 99 01/06 6Interpretive Data: Adult reference range values reflect the clinical guidelines of the [place] [employer]. [place] ELECTROLYTE eGFR 11 01/06 3Result Comment: The eGFR is calculated using the CKD-EPI formula. In most young, healthy individuals the eGFR will be > 90 mL/min/1.73m2. The eGFR declines with age. An eGFR of 60-89 may be normal in mL/min/1.7 some populations, particularly the elderly, for whom the CKD-EPI formula has not been extensively validated. Use of the eGFR is not recommended in the following populations: [facility] 3m2 Individuals with unstable creatinine concentrations, including patients and those with serious co-morbid conditions. Patients with extremes in muscle mass or diet. The data above are obtained from the National Kidney Disease Education Program (NKDEP) which additionally recommends that when the eGFR is used in patients with extremes of body mass index for purposes of drug dosing, the eGFR should be multiplied by the estimated BMI. ELECTROLYTE AGAP 12.0 meq/L 10.0 - 04 [place] S 20.0 [facility] ELECTROLYTE CO2 24 meq/L 24 - 32 01/06 [facility] ELECTROLYTE Calcium Lvl 8.1 mg/dL 8.5 - 10.5 01/06 [facility] IMMUNOLOGY C4 Complement 33 mg/dL 16 - 47 01/06 [facility] IMMUNOLOGY C3 Complement 111 mg/dL 88 - 201 01/06 [facility] IMMUNOLOGY ASO 57 [iU]/mL 0 - 408 01/06 [facility] URINE CHEM U Prot/Creat 0.3 01/06 [facility] URINE CHEM U Protein 16.1 mg/dL 01/06 11Interpretiv e Data: No [facility] established reference ranges. URINE CHEM U Creatinine 50.2 mg/dL 01/06 9Interpretive Data: No [facility] established reference ranges. CHEM PANEL Phosphorus 4.3 mg/dL 2.5 - 4.5 01/05 [facility] CHEM PANEL Albumin Lvl 2.2 g/dL 3.5 - 5.0 01/05 [facility] HEMATOLOGY RBC 3.47 M/CMM 4.70 - 04 [place] 6.10 [facility] HEMATOLOGY Hgb 9.7 g/dL 14.0 - 01/05 [place] 18.0 [facility] HEMATOLOGY Hct 29.7 % 42.0 - 01/05 [place] 54.0 [facility] HEMATOLOGY MPV 7.1 fL 7.4 - 10.4 01/05 [place] [facility] HEMATOLOGY Platelet 285 K/CMM 133 - 450 01/05 [facility] HEMATOLOGY RDW 15.4 % 11.5 - 01/05 [place] 14.5 [facility] HEMATOLOGY WBC 9.1 K/CMM 3.7 - 10.4 01/05 [place] [facility] HEMATOLOGY MCV 85.7 fL 80.0 - 01/05 [place] 94.0 [facility] HEMATOLOGY MCH 27.9 pg 27.0 - 01/05 [place] 31.0 [facility] HEMATOLOGY MCHC 32.5 g/dL 32.0 - 01/05 [place] 36.0 [facility] URINE AND UA Color Yellow Yellow 01/04 [place] *NA* (01/04/15 6:17 PM) URINE AND UA Turbidity Clear Clear 01/04 [place] [facility] (01/04/15 6:17 PM) URINE AND UA Spec Grav <=1.005 <=1.030 01/04 [place] STOOL
*NA*< [place] br/>( 5 6:17 PM) URINE AND UA pH 6.0 5.0 - 8.0 01/04 [place] STOOL [facility] URINE AND UA Protein Negative Negative 01/04 [place] STOOL [facility] (01/04/15 6:17 PM) URINE AND UA Glucose Negative Negative 01/04 [place] STOOL [facility] (01/04/15 6:17 PM) URINE AND UA Ketones Negative Negative 01/04 [place] *NA* (01/04/15 6:17 PM) URINE AND UA Bili Negative Negative 01/04 [place] *NA* (01/04/15 6:17 PM) URINE AND UA Blood Small Negative 01/04 [place] STOOL *ABN* (01/04/15 6:17 PM) URINE AND UA WBC 0-2 /HPF None Seen 01/04 [place] STOOL /HPF [facility] URINE AND UA Bacteria Occasional None Seen 01/04 [place] STOOL /HPF /HPF /2014 [facility] URINE AND UA Leuk Est Negative Negative 01/04 [place] STOOL [facility] (01/04/15 6:17 PM) URINE AND UA 0.2 EU/dL 0.1 - 1.0 01/04 [place] STOOL Urobilinogen [facility] URINE AND UA Nitrite Negative Negative 01/04 [facility] (01/04/15 6:17 PM) URINE AND UA Sq Epi Occasional Few /LPF 01/04 [place] STOOL /LPF [facility] URINE AND UA RBC 0-2 /HPF 0 - 2 01/04 [facility] URINE CHEM U Eos None Seen None Seen 01/04 [facility] (01/04/15 6:17 PM) URINE CHEM U Sodium 60 meq/L 01/04 12Interpretiv e Data: No [facility] established reference ranges. URINE CHEM U Creatinine 31.0 mg/dL 01/04 10Interpretiv e Data: No [facility] established reference ranges. Retroperito Retroperitone RENAL ULTRASOUND 01/04 - [facility] ashley al - [facility] Complete US US CLINICAL HISTORY: Read by: Nathaniel Washburn MD Dictated Date/time: 01/04/15 17:37 Renal insufficiency; abdominal fullness Electronically Signed by: Nathaniel Washburn MD 01/04/15 17:40 FINAL REPORT FINDINGS: Right kidney: Length and cortical thickness are 13.3 and 1.4 cm, respectively. No hydronephrosis, suspicious mass, or large shadowing calculus. Left Kidney: Length and cortical thickness are 13.7 and 1.6 cm, respectively. There is a large cyst arising from the inferior pole of the left kidney measuring 3.9 x 5.9 x 6.1 cm. No hydronephrosis, suspicious mass, or large shadowing calculus. Bladder: No wall thickening, mural nodularity, or suspicious intraluminal echoes are identified. Both ureteral jets are present. Vascular: The IVC and aorta were not assessed sonographically. IMPRESSION: 1. Large renal cyst arising from the inferior pole of the left kidney. 2. Otherwise, normal renal sonogram without hydronephrosis. CHEM PANEL Bili Total 0.4 mg/dL 0.2 - 1.3 12/31 [facility] CHEM PANEL Bili Direct 0.1 mg/dL 0.0 - 0.3 12/31 [facility] CHEM PANEL Total Protein 7.0 g/dL 6.4 - 8.4 12/31 [facility] CHEM PANEL Albumin Lvl 1.9 g/dL 3.5 - 5.0 12/31 [place] CHEM PANEL Alk Phos 104 unit/L 39 - 136 12/31 [place] CHEM PANEL ALT 51 unit/L 0 - 65 12/31 [place] CHEM PANEL AST 26 unit/L 0 - 37 12/31 [place] CHEM PANEL Bili Indirect 0.3 mg/dL 0.0 - 1.0 12/31 [place] CHEM PANEL A/G Ratio 0.4 0.7 - 1.6 12/31 [place] CHEM PANEL Globulin 5.1 g/dL 2.0 - 4.0 12/31 [place] HEMATOLOGY Basophils # 0.1 K/CMM 0.0 - 0.2 12/31 [place] HEMATOLOGY Eosinophils # 0.4 K/CMM 0.0 - 0.5 12/31 [place] HEMATOLOGY Monocytes # 1.2 K/CMM 0.0 - 0.8 12/31 [place] HEMATOLOGY Lymphocytes # 1.6 K/CMM 1.0 - 5.5 12/31 [place] HEMATOLOGY Segs-Bands # 6.2 K/CMM 1.5 - 8.1 12/31 [place] HEMATOLOGY Eosinophils 4.2 % 0.0 - 4.0 12/31 [place] HEMATOLOGY Basophils 0.7 % 0.0 - 1.0 12/31 [place] HEMATOLOGY Lymphocytes 17.0 % 20.0 - 12/31 [place] 40.0 /2014 [place] HEMATOLOGY Monocytes 12.7 % 2.0 - 12.0 12/31 [place] HEMATOLOGY Segs 65.4 % 45.0 - 12/31 [place] 75.0 /2014 [place] HEMATOLOGY MCH 28.2 pg 27.0 - 12/31 [place] 31.0 [place] HEMATOLOGY MCHC 32.8 g/dL 32.0 - 12/31 [place] 36.0 /2014 [place] HEMATOLOGY RDW 14.8 % 11.5 - 12/31 [place] 14.5 [place] HEMATOLOGY Platelet 385 K/CMM 133 - 450 12/31 [place] HEMATOLOGY MPV 7.5 fL 7.4 - 10.4 12/31 [place] HEMATOLOGY Hct 31.3 % 42.0 - 12/31 [place] 54.0 /2014 [place] HEMATOLOGY MCV 86.1 fL 80.0 - 12/31 [place] 94.0 /2014 [place] HEMATOLOGY WBC 9.5 K/CMM 3.7 - 10.4 12/31 [place] HEMATOLOGY RBC 3.64 M/CMM 4.70 - 12/31 [place] 6.10 [place] HEMATOLOGY Hgb 10.3 g/dL 14.0 - 12/31 [place] 18.0 /2014 [place] HEMATOLOGY Lymphocytes # 1.8 K/CMM 1.0 - 5.5 12/30 [place] HEMATOLOGY Segs-Bands # 6.6 K/CMM 1.5 - 8.1 12/30 [place] HEMATOLOGY Monocytes # 1.2 K/CMM 0.0 - 0.8 12/30 [place] HEMATOLOGY Eosinophils # 0.3 K/CMM 0.0 - 0.5 12/30 [facility] HEMATOLOGY Eosinophils 3.1 % 0.0 - 4.0 12/30 [facility] HEMATOLOGY Monocytes 12.3 % 2.0 - 12.0 12/30 [facility] HEMATOLOGY Basophils 0.4 % 0.0 - 1.0 12/30 [facility] HEMATOLOGY Basophils # 0.0 K/CMM 0.0 - 0.2 12/30 [place] HEMATOLOGY Segs 65.9 % 45.0 - 12/30 [place] 75.0 /2014 [facility] HEMATOLOGY Lymphocytes 18.3 % 20.0 - 12/30 [place] 40.0 [place] TOXICOLOGY Vanco Tr TND [id number] 12/30 [place] TOXICOLOGY Vanco Tr 16.0 ug/ml 12/30 7Interpretive Data: Therapeutic Range: Trough: 10 - 20 ug/mL [place] Peak: 20 - 40 ug/mL Potential Toxicity: >80 ug/mL HEMATOLOGY PT 14.9 s 12.0 - 12/29 [place] 14.7 [place] HEMATOLOGY INR 1.16 0.85 - 12/29 13Interpretive Data: RECOMMENDED RANGES FOR PROTIME INR: 1. 2.0-3.0 for most medical and surgical thromboembolic states. [place] 2.5-3.5 for artificial heart valves and recurrent embolism. INR SHOULD BE USED ONLY FOR PATIENTS ON STABLE ANTICOAGULANT THERAPY. TOXICOLOGY Vanco Tr TND 1400 12/28 [place] TOXICOLOGY Vanco Tr 10.5 ug/ml 12/28 8Interpretive Data: Therapeutic Range: Trough: 10 - 20 ug/mL [facility] Peak: 20 - 40 ug/mL Potential Toxicity: >80 ug/mL HEMATOLOGY INR 1.27 0.85 - 12/28 14Interpretive Data: RECOMMENDED RANGES FOR PROTIME INR: [facility] . 2.0-3.0 for most medical and surgical thromboembolic states. [place] 2.5-3.5 for artificial heart valves and recurrent embolism. INR SHOULD BE USED ONLY FOR PATIENTS ON STABLE ANTICOAGULANT THERAPY. HEMATOLOGY PT 16.0 s 12.0 - 12/28 [place] 14.7 [facility] Abdomen RUQ Abdomen RUQ ABDOMEN RIGHT UPPER QUADRANT ULTRASOUND, 12/28/201412/28 - [facility] US US /2014 - HISTORY: Abnormal liver function tests. Read by: Mir Main MD Dictated Date/time: 12/28/14 08:22 Electronically Signed by: Mir Main MD 12/28/14 08:26 FINAL REPORT The gallbladder is normal in size with borderline thickening of the gallbladder wall. Small ringdown artifact noted within the gallbladder related to cholesterolosis. No evidence of gallstones or perich olecystic fluid. The liver is borderline enlarged, but demonstrates normal echogenicity with no evidence of fatty change. No evidence of liver mass or bile duct dilatation. The pancreas, right kidney, a hyun, inferior vena cava look normal. No evidence of ascites. CONCLUSION: Borderline gallbladder wall thickening with mild gallbladder cholesterolosis. No evidence of gallstones. Borderline hepatomegaly without evidence of fatty change, liver mass, or bile duct dilatation.. Foot 2 Foot 2 views Left foot. 12/27 - [place] views DX DX - [facility] HISTORY: Status post op. 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 Satisfactory postoperative appearance. BLOOD BANK ABO/Rh B POS 12/27 [place] RESULTS /2014 [facility] BLOOD BANK Antibody Scrn Negative 12/27 [place] RESULTS /2014 [place] (12/27/14 10:32 AM) CHEM PANEL Magnesium Lvl 2.4 mg/dL 1.8 - 2.4 12/27 [place] CHEM PANEL Bili Direct 0.2 mg/dL 0.0 - 0.3 12/27 [facility] CHEM PANEL Bili Total 0.8 mg/dL 0.2 - 1.3 12/27 [place] CHEM PANEL AST 72 unit/L 0 - 37 12/27 [place] CHEM PANEL Alk Phos 113 unit/L 39 - 136 12/27 [place] CHEM PANEL ALT 92 unit/L 0 - 65 12/27 [place] CHEM PANEL Albumin Lvl 2.0 g/dL 3.5 - 5.0 12/27 [facility] CHEM PANEL Total Protein 6.9 g/dL 6.4 - 8.4 12/27 [facility] CHEM PANEL Globulin 4.9 g/dL 2.0 - 4.0 12/27 [facility] CHEM PANEL A/G Ratio 0.4 0.7 - 1.6 12/27 [facility] CHEM PANEL B/C Ratio 11 6 - 25 12/27 [facility] HEMATOLOGY INR 1.30 0.85 - 12/27 15Interpretive Data: RECOMMENDED RANGES FOR PROTIME INR: [place] 1. 2.0-3.0 for most medical and surgical thromboembolic states. [place] 2.5-3.5 for artificial heart valves and recurrent embolism. INR SHOULD BE USED ONLY FOR PATIENTS ON STABLE ANTICOAGULANT THERAPY. HEMATOLOGY PT 16.3 s 12.0 - 12/27 [place] 14.7 [place] LIPIDS VLDL 21 12/27 [facility] LIPIDS LDL 49 mg/dL <=99 mg/dL 12/27 [place] (Calculated) [facility] LIPIDS CHD Risk 6.38 4.00 - 12/27 [place] 7.30 [facility] LIPIDS HDL 13 mg/dL >=61 mg/dL 12/27 [facility] LIPIDS Trig 105 mg/dL <=149 12/27 [place] mg/dL [facility] LIPIDS Chol 83 mg/dL <=199 12/27 [place] mg/dL /2014 [place] SPECIAL Hgb A1C 9.2 % <=5.6 % 12/27 [place] CHEMISTRY [place] Foot wo Foot wo EXAM: MRI of the left foot without contrast 12/26 - [place] contrast contrast /2014 - [facility] MRI REASON FOR EXAM: Pain and Swelling Read by: Lino Esquivel MD Dictated Date/time: 12/26/14 20:59 Electronically Signed by: Lino Esquivel MD 12/26/14 21:17 FINAL REPORT COMPARISON: X-rays on 12/26/2014 TECHNIQUE: Multiplanar, multisequence MRI of the left foot without contrast. FINDINGS: There is prominent abnormal bone marrow signal throughout the first proximal and distal phalanges consistent with osteomyelitis. There is also bony destruction of the first distal phalanx and head of th e first proximal phalanx. There is a soft tissue ulcer along the plantar aspect of the first toe. There are probable phlegmons or abscesses circumferentially around the first toe. There is also mild T2 hyperintense bone marrow signal in the second proximal phalanx, slight T2 hyperintense bone marrow signal in the third proximal phalanx, and slight T2 hyperintense bone marrow sign al in the fourth proximal phalanx and fourth metatarsal head, which could be reactive or could also represent mild osteomyelitis. There are fluid collections dorsal to the second through fourth MTP joints, which could also represent abscesses. There is prominent cellulitis of the left forefoot, most prominent in the first toe. There is also mild soft tissue edema in the forefoot muscles, which could represent myositis or active denervation. There is an old healed fracture of the fifth metatarsal shaft. There is mild osteoarthritis of the first MTP joint with mild subchondral marrow edema in the first metatarsal head. There are plantar fibr omas along the central cord of the plantar fascia. There is no ligament or tendon tear. The Lisfranc ligament is intact. IMPRESSION: 1. Prominent osteomyelitis throughout the first proximal and distal phalanges. There is also bony destruction of the first distal phalanx and head of the first proximal phalanx. There is a soft tissue u lcer along the plantar aspect of the first toe. There are probable phlegmons or abscesses circumferentially around the first toe. 2. Mild T2 hyperintense bone marrow signal in the second proximal phalanx, slight T2 hyperintense bone marrow signal in the third proximal phalanx, and slight T2 hyperintense bone marrow signal in the f ourth proximal phalanx and fourth metatarsal head, which could be reactive or could also represent mild osteomyelitis. There are fluid collections dorsal to the second through fourth MTP joints, which could also represent abscesses. 3. Prominent cellulitis of the left forefoot, most prominent in the first toe. There is also mild soft tissue edema in the forefoot muscles, which could represent myositis or active denervation. CHEM PANEL B/C Ratio 13 6 - 25 12/26 [facility] CHEM PANEL Globulin 5.9 g/dL 2.0 - 4.0 12/26 [facility] CHEM PANEL A/G Ratio 0.4 0.7 - 1.6 12/26 [facility] CHEM PANEL ALT 67 unit/L 0 - 65 12/26 [facility] CHEM PANEL AST 51 unit/L 0 - 37 12/26 [facility] CHEM PANEL Alk Phos 106 unit/L 39 - 136 12/26 [facility] CHEM PANEL Bili Total 0.8 mg/dL 0.2 - 1.3 12/26 [facility] CHEM PANEL Total Protein 8.3 g/dL 6.4 - 8.4 12/26 [facility] CHEM PANEL Lactic Acid 1.9 mMol/L 0.5 - 2.2 12/26 [facility] Lvl [facility] HEMATOLOGY RBC Morph Normal 12/26 [facility] (12/26/14 1:36 PM) HEMATOLOGY Plt Morph Normal 12/26 [facility] (12/26/14 1:36 PM) Ext Lower Ext Lower CORRECTION: The left popliteal artery demonstrates an area of high velocity (223 cm/sec PSV), which may suggest an underlying significant stenosis, despite biphasic waveform. This can be evaluated with a catheter angiogram. 12/26 - [facility] Arterial Arterial /2014 - [facility] Doppler Doppler bilat STUDY: Extrmty lower-cristhian art Dopp US w/o press bilat US US Read by: Tim Burden MD Dictated Date/time: 12/26/14 17:53 COMPARISON: None Electronically Signed by: Tim Burden MD 12/26/14 17:55 FINAL REPORT - - FINDINGS: Grayscale and doppler ultrasonographic evaluation of the arteries was performed. Read by: Tim Burden MD Dictated Date/time: 12/26/14 17:20 Right: Electronically Signed by: Tim Burden MD 12/26/14 17:41 FINAL REPORT Doppler waveforms are triphasic in the right common femoral artery, superficial femoral artery, popliteal artery, anterior tibial, posterior tibial and dorsalis pedis arteries. Left: Doppler waveforms are triphasic in the left common femoral, superficial femoral, and biphasic in the left popliteal artery. The anterior tibial artery also demonstrates a biphasic waveform. The posterio r tibial artery demonstrates a biphasic waveform with a normal peak systolic velocity. The dorsalis pedis demonstrates a monophasic waveform, however, this is likely related to vessel calcification. Add itionally there are good velocities to the left DP. Left inguinal reactive lymphadenopathy. IMPRESSION: 1. No evidence arterial insufficiency or occlusive disease at rest in the right lower extremity. 2. Unremarkable left common femoral, superficial femoral arteries, popliteal arteries, anterior tibial and posterior tibial arteries. There is a monophasic waveform in the left dorsalis pedis artery, however, this is likely attributed to heavy calcifications, as the waveform is not blunted and velocities are not significantly decreased. Foot series Foot series Left foot. 12/26 - [facility] DX /2014 - [facility] HISTORY: Pain and swelling. Read by: Sandro Arredondo MD Dictated Date/time: 12/26/14 14:17 Electronically Signed by: Sandro Arredondo MD 12/26/14 14:23 FINAL REPORT Three views of left foot shows extensive osseous destruction through the distal phalanx of the left great toe and consistent with active osteomyelitis. Accompanying lytic destruction through the distal third of the proximal phalanx of left great toe is compatible with accompanying osteomyelitis at this level. Prominent soft tissue swelling involving the left great toe as well as the left second, thir d. and fourth digits of the left foot. Subcentimeter hypodensity within the soft tissues could reflect necrotizing soft tissue infection on the lateral aspect of the left great toe. Old healed fracture through the midshaft of the left fifth metatarsal. Subchondral cystic reaction and spurring involves the distal end of the left first metatarsal and corresponds to osteoarthritis at this level. Mild soft tissue swelling on the dorsal aspect of the left foot. Faint vascular calcification in the region of the distal left anterior and posterior tibial arteries. Tiny spur off the plantar surface of the left os calcis. Chemistry SODIUM 134 mmol/L 135 - 143 11/06 /2014 [facility] POTASSIUM 4.8 mmol/L 3.3 - 5.0 11/06 [facility] BUN 18 mg/dL 11/06 [facility] CREATININE 0.75 mg/dL 0.46 - 11/06 1. [facility] HGBA1C 10.0 % 3.0 - 6.0 11/06 [facility] SODIUM 134 mmol/L 135 - 143 11/06 [facility] POTASSIUM 4.8 mmol/L 3.3 - 5.0 11/06 [facility] Chemistry SODIUM 134 mmol/L 135 - 143 11/06 [facility] POTASSIUM 4.8 mmol/L 3.3 - 5.0 11/06 [facility] BUN 18 mg/dL - 11/06 [facility] CREATININE 0.75 mg/dL 0.46 - 11/06 1. [facility] Chemistry HGBA1C 10.0 % 3.0 - 6.0 11/06 [facility] Hematology HGB 14.2 g/dL 12.3 - 11/06 17. [facility] Hematology HCT 42.5 % 36.7 - 11/06 50. [facility] Chemistry CHOLESTEROL 166 mg/dl 11/27 [facility] TRIGLYCERIDE 141 mg/dl 11/27 [facility] HDL 40 mg/dl 11/27 [facility] LDL 98 mg/dl 11/27 [facility] HGBA1C 10.5 % 11/27 [facility] CHOLESTEROL 166 mg/dl 11/27 [facility] TRIGLYCERIDE 141 mg/dl 11/27 [facility] Chemistry CHOLESTEROL 166 mg/dl 11/27 [facility] Chemistry TRIGLYCERIDE 141 mg/dl 11/27 [facility] Chemistry CHOLESTEROL 166 mg/dl 11/27 [facility] TRIGLYCERIDE 141 mg/dl 11/27 [facility] Chemistry HDL 40 mg/dl 11/27 [facility] Chemistry LDL 98 mg/dl 11/27 [facility] Chemistry HGBA1C 10.5 % 11/27 [facility] CHOLESTEROL 190 mg/dl 03/03 [facility] TRIGLYCERIDE 96 mg/dl 03/03 [facility] Chemistry HDL 40 mg/dl 03/03 [facility] Chemistry LDL 131 mg/dl 03/03 [facility] HGBA1C 9.9 % 03/03 [facility] CHOLESTEROL 190 mg/dl 03/03 [facility] TRIGLYCERIDE 96 mg/dl 03/03 [facility] CHOLESTEROL 190 mg/dl 03/03 [facility] TRIGLYCERIDE 96 mg/dl 03/03 [facility] CHOLESTEROL 190 mg/dl 03/03 [facility] TRIGLYCERIDE 96 mg/dl 03/03 [facility] Chemistry HDL 40 mg/dl 03/03 [facility] Chemistry LDL 131 mg/dl 03/03 [facility] HGBA1C 9.9 % 03/03 [facility] CHOLESTEROL 202 mg/dl 11/21 [facility] TRIGLYCERIDE 217 mg/dl 11/21 [facility] HDL 36 mg/dl 11/21 [facility] LDL 123 mg/dl 11/21 [facility] PSA 0.21 ng/mL 11/21 [facility] TSH 1.28 11/21 uIU/mL [facility] CHOLESTEROL 202 mg/dl 11/21 [facility] TRIGLYCERIDE 217 mg/dl 11/21 [facility] CHOLESTEROL 202 mg/dl 11/21 [facility] TRIGLYCERIDE 217 mg/dl 11/21 [facility] CHOLESTEROL 202 mg/dl 11/21 [facility] TRIGLYCERIDE 217 mg/dl 11/21 [facility] Chemistry HDL 36 mg/dl 11/21 [facility] Chemistry LDL 123 mg/dl 11/21 [facility] Chemistry PSA 0.21 ng/mL 11/21 [facility] Chemistry TSH 1.28 11/21 uIU/mL /2006 [facility] Vital Signs Vital Sign Value Date Comments Source Height 182.88 cm 02/21/2018 [facility] BMI Calculated 29.9 02/21/2018 [facility] Weight 100 02/21/2018 [facility] Temperature Oral (F) 98.1 F 02/21/2018 [facility] Heart Rate 70 02/21/2018 [facility] Systolic (mm Hg) 169 02/21/2018 [facility] Diastolic (mm Hg) 80 02/21/2018 [facility] Weight 100.568 09/28/2017 [facility] Systolic (mm Hg) 117 09/28/2017 [facility] Diastolic (mm Hg) 69 09/28/2017 [facility] Heart Rate 81 09/28/2017 [facility] Temperature Oral (F) 98.1 F 09/28/2017 [facility] Weight 98.807 09/14/2017 [facility] Temperature Oral (F) 97.8 F 09/14/2017 [facility] Systolic (mm Hg) 144 09/14/2017 [facility] Diastolic (mm Hg) 76 09/14/2017 [facility] Heart Rate 82 09/14/2017 [facility] Systolic (mm Hg) 140 08/18/2017 [facility] Diastolic (mm Hg) 74 08/18/2017 [facility] BMI Calculated 29.9 08/18/2017 [facility] Weight 100 08/18/2017 [facility] Height 182.88 cm 08/18/2017 [facility] Heart Rate 73 08/18/2017 [facility] Temperature Oral (F) 97.9 F 08/18/2017 [facility] Systolic (mm Hg) 152 08/18/2017 [facility] Diastolic (mm Hg) 84 08/18/2017 [facility] Weight 200.6 04/14/2015 [facility] Temperature Oral (F) 97.9 F 04/14/2015 [facility] Systolic (mm Hg) 102 04/14/2015 [facility] Diastolic (mm Hg) 67 04/14/2015 [facility] Heart Rate 91 04/14/2015 [facility] Respitory Rate 16 04/14/2015 [facility] Weight 201.2 03/28/2015 [facility] Temperature Oral (F) 98.0 F 03/28/2015 [facility] Respitory Rate 16 03/28/2015 [facility] Heart Rate 73 03/28/2015 [facility] Systolic (mm Hg) 105 03/28/2015 [facility] Diastolic (mm Hg) 62 03/28/2015 [facility] Weight 204 01/16/2015 [facility] Temperature Oral (F) 97.9 F 01/16/2015 [facility] Systolic (mm Hg) 157 01/16/2015 [facility] Diastolic (mm Hg) 78 01/16/2015 [facility] Heart Rate 68 01/16/2015 [facility] Respitory Rate 16 01/16/2015 [facility] Systolic (mm Hg) 153 01/08/2015 [place] Diastolic (mm Hg) 78 01/08/2015 [place] Respitory Rate 16 01/08/2015 [place] Heart Rate 67 01/08/2015 [place] Temperature Oral (F) 97.8 F 01/08/2015 [place] Systolic (mm Hg) 166 01/08/2015 [place] Diastolic (mm Hg) 82 01/08/2015 [place] Heart Rate 74 01/08/2015 [place] Respitory Rate 18 01/08/2015 [place] Temperature Oral (F) 97.3 F 01/08/2015 [place] Temperature Oral (F) 98.4 F 01/08/2015 [place] Heart Rate 76 01/08/2015 [place] Respitory Rate 18 01/08/2015 [place] Systolic (mm Hg) 159 01/08/2015 [place] Diastolic (mm Hg) 77 01/08/2015 [place] Height 185.42 cm 12/26/2014 [place] BMI Calculated 26.79 12/26/2014 [place] Weight 92.1 12/26/2014 [place] Weight 92.074 12/26/2014 [place] BMI Calculated 26.78 12/26/2014 [place] Height 185.42 cm 12/26/2014 [place] Weight 100.9 12/26/2014 [place] Height 185.42 cm 12/26/2014 [place] BMI Calculated 29.35 12/26/2014 [place] Weight 198 12/26/2014 [facility] Temperature Oral (F) 99.0 F 12/26/2014 [facility] Respitory Rate 16 12/26/2014 [facility] Heart Rate 99 12/26/2014 [facility] Systolic (mm Hg) 104 12/26/2014 [facility] Diastolic (mm Hg) 58 12/26/2014 [facility] Weight 207.6 12/12/2014 [facility] Temperature Oral (F) 98.6 F 12/12/2014 [facility] Heart Rate 99 12/12/2014 [facility] Systolic (mm Hg) 136 12/12/2014 [facility] Diastolic (mm Hg) 73 12/12/2014 [facility] Respitory Rate 16 12/12/2014 [facility] Weight 210.0 11/12/2014 [facility] Temperature Oral (F) 97.7 F 11/12/2014 [facility] Heart Rate 88 11/12/2014 [facility] Respitory Rate 16 11/12/2014 [facility] Systolic (mm Hg) 150 11/12/2014 [facility] Diastolic (mm Hg) 80 11/12/2014 [facility] Weight 213 11/06/2014 [facility] Temperature Oral (F) 98.8 F 11/06/2014 [facility] Heart Rate 88 11/06/2014 [facility] Respitory Rate 16 11/06/2014 [facility] Systolic (mm Hg) 120 11/06/2014 [facility] Diastolic (mm Hg) 70 11/06/2014 [facility] Temperature Oral (F) 99.3 F 11/15/2013 [facility] Weight 217 11/15/2013 [facility] Systolic (mm Hg) 120 11/15/2013 [facility] Diastolic (mm Hg) 80 11/15/2013 [facility] Respitory Rate 18 11/15/2013 [facility] Heart Rate 89 11/15/2013 [facility] Height 71 11/27/2012 [facility] Weight 213 11/27/2012 [facility] Temperature Oral (F) 98.2 F 11/27/2012 [facility] Heart Rate 64 11/27/2012 [facility] Systolic (mm Hg) 118 11/27/2012 [facility] Diastolic (mm Hg) 60 11/27/2012 [facility] Respitory Rate 20 11/27/2012 [facility] Encounters Location Location Encounter Encounter Reason Attending ADM DC Status Source Details Type Number For Provider Date Date Visit [facility] [id number] [place] 11/15 11/15 [place] Medical Visit [address], [facility] [place] 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 [id number] Sel[place] 11/06 11/06 [place] Medical Visit [address], [facility] [place] [employer] [facility] Lab Report [id number] Sel[place] 11/06 11/06 [place] [facility] [address] [id number] [place] 11/12 11/12 [place] [facility] [address] [id number] [place] 12/12 12/12 [place] [facility] [address] [id number] Art 12/26 12/26 [place] Medical Visit [address], /2014 Saroj Liang MD [facility] Inpatient [id number] [place] 12/26 01/09 [facility] [place]ula /2014 [place] [facility] Office [id number] Art 01/16 01/16 [place] Medical Visit [address], /2014 Saroj Liang MD [facility] Lab Report [id number] Art 01/16 01/16 [place] [facility] [address], /2014 Saroj Liang MD [facility] Lab Report [id number] Art 03/28 03/28 [place] [facility] [address], /2014 Saroj Liang MD [facility] Lab Report [id number] Art 03/28 03/28 [place] [facility] [address], /2014 Saroj Liang MD [facility] Lab Report [id number] Art 03/28 03/28 [facility] [address], /2014 Medical Saroj SCHULTZ [facility] Lab Report [id number] Art 04/14 04/14 [place] [facility] [address], /2014 Saroj Liang MD [facility] Outpatient [id number] ART 06/16 Active [facility] FELICITA /2014 [place] Outpatient [id number] ART 08/31 Active [facility] /2015 [place] Outpatient [id number] ART 11/01 [facility] [id number] ART 02/03 [facility] [id number] SELIN 08/11 Active [facility] Colin Outpatient [id number] ART 08/18 Active [facility] /2016 [facility] Outpatient [id number] Art 08/18 08/19 [facility] [place] Outpatient [id number] ART 09/14 Active [facility] Outpatient [id number] Art 09/14 09/15 [facility] /2016 [facility] [place] Outpatient [id number] ART 09/28 Active [facility] Colin [facility] Outpatient [id number] Art 09/28 09/29 Primary /2016 [facility] [place] Outpatient [id number] ART 02/21 Active [facility] Colin [facility] Outpatient [id number] Art 02/21 02/22 Primary [place] /2017 [facility] Phone [id number] 02/22 02/24 Primary Message /2017 [facility] Phone [id number] 04/10 04/12 Primary Message /2017 [facility] [place] Procedures Procedure Code Date Perfomer Comments Source diabetic foot check [id number] yes [facility] Group diabetic foot check [id number] yes [facility] Group Transmetatarsal [id number] Left foot Medical amputation of 5 transmetatarsal Group foot<sup>1</sup> amputation Transmetatarsal [id number] 1Left foot [facility] amputation of 5 transmetatarsal [facility] foot<sup>1</sup> amputation diabetic foot check [id number] yes Medical 5 Group diabetic foot check [id number] yes Medical 3 Group Excision of skin for [id number] Medical graft Group Excision of skin for [id number] [facility] graft [facility]
--- OUTSIDE RECORDS SUMMARY | 2018-10-17 10:01 | XMS REPORT | Continuity of Care Document ---
:[address] [facility] Care Team Providers Name Role Phone MD Nancy, Art Unavailable Unavailable Insurance Providers Payer name Policy type / Policy ID Covered green party ID Policy Godoy Coverage type *SELF PAY* SLIDING FEE SCHEDULE - DISCOUNT MEDICARE B-[place]: [employer] *SELF PAY* *SELF PAY* Encounters Encounter Performer Location Date Lab Report Art MD Nancy [facility] Mar 28, 2015 Practice Allergies, Adverse Reactions, Alerts Type Substance Reaction Status Drug allergy SULFA Active Problems Problem Effective Dates Problem Status DIABETES MELLITUS Inactive PERIPHERAL NEUROPATHY Active DIABETES MELLITUS, TYPE II, UNCONTROLLED Inactive DIABETES MELLITUS,TYPE II,UNCONTROLLED W/NEURO Inactive COMPLICATIONS ERECTILE DYSFUNCTION Nov 27, 2012 Active SINUSITIS, ACUTE Nov 15, 2013 Inactive CELLULITIS/ABSCESS, TOE NOS Nov 06, 2014 Inactive LOWER LIMB AMPUTATION, FOOT Jan 16, 2015 Active RENAL FAILURE, ACUTE Jan 16, 2015 Active POLYNEUROPATHY IN DIABETES Mar 28, 2015 Active DIABETIC PERIPHERAL NEUROPATHY Mar 28, 2015 Active DIABETES MELLITUS, TYPE II, CONTROLLED, W/RENAL COMPS Mar 28, 2015 Active KIDNEY DISEASE, CHRONIC, STAGE III Mar 28, 2015 Active RETINOPATHY, DIABETIC, BACKGROUND Mar 28, 2015 Active DIABETES MELLITUS, TYPE II, CONTROLLED, W/OPHTHALMIC Mar 28, 2015 Active COMPS URINARY TRACT INFECTION Mar 28, 2015 Active BENIGN PROSTATIC HYPERTROPHY, WITH OBSTRUCTION Mar 28, 2015 Active Procedures Date Description Comments Nov 27, 2012 smoking status never smoker Nov 27, 2012 diabetic foot check yes Nov 06, 2014 smoking status never smoker Nov 12, 2014 smoking status never smoker Dec 12, 2014 smoking status Never smoker Dec 12, 2014 diabetic foot check yes Dec 26, 2014 smoking status Never smoker Jan 16, 2015 smoking status Never smoker Mar 28, 2015 smoking status Never smoker Mar 28, 2015 diabetic foot check yes Medications Medication Instructions Start Date Status GLIMEPIRIDE 2 MG TABS 1 PO daily Inactive AUGMENTIN 875-125 MG TABS 1 tablet PO BID for 10 days Nov 15, 2013 Inactive METFORMIN HCL 500 MG TABS 1 PO bid Nov 15, 2013 Inactive QNASL 80 MCG/ACT AERS 2 sprays to each nostril daily Nov 15, 2013 Inactive KEFLEX 500 MG CAPS 1 tablet PO TID for 10 days Nov 06, 2014 Inactive ANTISEPTIC SKIN CLEANSER 4 % Cleanse area BID after warm soak Nov 06, 2014 Active SOLN METOPROLOL SUCCINATE ER 100 MG 2 tablet daily Nov 12, 2014 Inactive [id number] KEFLEX 500 MG CAPS 2 capsule 2 times a day Dec 12, 2014 Inactive METFORMIN HCL ER 500 MG 1-2 tablet 2x daily Nov 22, 2014 Inactive [id number] KOMBIGLYZE XR 5-1000 MG 1 tablet daily Nov 12, 2014 Inactive SE92E-JIP TOTAL GLUCOSE CONTROL 500 MG 1 BY MOUTH DAILY May 06, 2014 Inactive METOPROLOL TARTRATE 50 MG TABS 1 BY MOUTH DAILY Jan 08, 2015 Active NOVOLIN N RELION 100 UNIT/ML 10 U 2x daily Jan 08, 2015 Active SUSP CIPRO 500 MG TABS 1 tablet q18 hours Mar 28, 2015 Inactive CIALIS 5 MG TABS 1 daily Nov 27, 2012 Active Vital Signs Date Description Test Result Nov 27, 2012 height E&M - 8302-2 HEIGHT 71 in Nov 27, 2012 weight E&M - 3141-9 WEIGHT 213 lb Nov 27, 2012 temperature E&M TEMPERATURE 98.2 deg f Nov 27, 2012 pulse rate E&M - 8867-4 PULSE RATE 64 /min Nov 27, 2012 blood pressure, systolic - 8480-6 BP SYSTOLIC 118 mm Hg Nov 27, 2012 blood pressure, diastolic - 8462-4 BP DIASTOLIC 60 mm Hg Nov 27, 2012 respiratory rate E&M - 9279-1 RESP RATE 20 /min Nov 15, 2013 temperature E&M TEMPERATURE 99.3 deg f Nov 15, 2013 weight E&M - 3141-9 WEIGHT 217 lb Nov 15, 2013 blood pressure, systolic - 8480-6 BP SYSTOLIC 120 mm Hg Nov 15, 2013 blood pressure, diastolic - 8462-4 BP DIASTOLIC 80 mm Hg Nov 15, 2013 respiratory rate E&M - 9279-1 RESP RATE 18 /min Nov 15, 2013 pulse rate E&M - 8867-4 PULSE RATE 89 /min Nov 06, 2014 weight E&M - 3141-9 WEIGHT 213 lb Nov 06, 2014 temperature E&M TEMPERATURE 98.8 deg f Nov 06, 2014 pulse rate E&M - 8867-4 PULSE RATE 88 /min Nov 06, 2014 respiratory rate E&M - 9279-1 RESP RATE 16 /min Nov 06, 2014 blood pressure, systolic - 8480-6 BP SYSTOLIC 120 mm Hg Nov 06, 2014 blood pressure, diastolic - 8462-4 BP DIASTOLIC 70 mm Hg Nov 12, 2014 weight E&M - 3141-9 WEIGHT 210.0 lb Nov 12, 2014 temperature E&M TEMPERATURE 97.7 deg f Nov 12, 2014 pulse rate E&M - 8867-4 PULSE RATE 88 /min Nov 12, 2014 respiratory rate E&M - 9279-1 RESP RATE 16 /min Nov 12, 2014 blood pressure, systolic - 8480-6 BP SYSTOLIC 150 mm Hg Nov 12, 2014 blood pressure, diastolic - 8462-4 BP DIASTOLIC 80 mm Hg Dec 12, 2014 weight E&M - 3141-9 WEIGHT 207.6 lb Dec 12, 2014 temperature E&M TEMPERATURE 98.6 deg f Dec 12, 2014 pulse rate E&M - 8867-4 PULSE RATE 99 /min Dec 12, 2014 blood pressure, systolic - 8480-6 BP SYSTOLIC 136 mm Hg Dec 12, 2014 blood pressure, diastolic - 8462-4 BP DIASTOLIC 73 mm Hg Dec 12, 2014 respiratory rate E&M - 9279-1 RESP RATE 16 /min Dec 26, 2014 weight E&M - 3141-9 WEIGHT 198 lb Dec 26, 2014 temperature E&M TEMPERATURE 99.0 deg f Dec 26, 2014 respiratory rate E&M - 9279-1 RESP RATE 16 /min Dec 26, 2014 pulse rate E&M - 8867-4 PULSE RATE 99 /min Dec 26, 2014 blood pressure, systolic - 8480-6 BP SYSTOLIC 104 mm Hg Dec 26, 2014 blood pressure, diastolic - 8462-4 BP DIASTOLIC 58 mm Hg Jan 16, 2015 weight E&M - 3141-9 WEIGHT 204 lb Jan 16, 2015 temperature E&M TEMPERATURE 97.9 deg f Jan 16, 2015 blood pressure, systolic - 8480-6 BP SYSTOLIC 157 mm Hg Jan 16, 2015 blood pressure, diastolic - 8462-4 BP DIASTOLIC 78 mm Hg Jan 16, 2015 pulse rate E&M - 8867-4 PULSE RATE 68 /min Jan 16, 2015 respiratory rate E&M - 9279-1 RESP RATE 16 /min Mar 28, 2015 weight E&M - 3141-9 WEIGHT 201.2 lb Mar 28, 2015 temperature E&M TEMPERATURE 98.0 deg f Mar 28, 2015 respiratory rate E&M - 9279-1 RESP RATE 16 /min Mar 28, 2015 pulse rate E&M - 8867-4 PULSE RATE 73 /min Mar 28, 2015 blood pressure, systolic - 8480-6 BP SYSTOLIC 105 mm Hg Mar 28, 2015 blood pressure, diastolic - 8462-4 BP DIASTOLIC 62 mm Hg Results Date Description Test Name Value Reference Interpretation Status Nov 06, hemoglobin, blood HGB 14.2 g/dL 12.3-17.3 2014Nov 06, hematocrit, blood HCT 42.5 % 36.7-50.5 2014Mar 28, sodium, serum SODIUM 138 mmol/L [phone] Mar 28, potassium, serum POTASSIUM 4.4 mmol/L 3.3-5.0 2014Mar 28, albumin, serum ALBUMIN 3.5 g/dL 3.5-5.0 2014Mar 28, calcium, serum CALCIUM 8.8 mg/dL 8.6-9.8 2014Mar 28, creatinine, serum CREATININE 1.35 mg/dL 0.46-1.20 High 2014Mar 28, urea nitrogen, blood BUN 27 mg/dL 10-22 High 2014Mar 28, alkaline phosphatase, ALK PHOS 49 U/L 32-96 2014Mar 28, aspartate SGOT (AST) 17 U/L 10-42 2014 aminotransferase (SGOT), serum Mar 28, alanine SGPT (ALT) 15 U/L -43 2014 aminotransferase (SGPT), serum Mar 28, cholesterol, serum CHOLESTEROL 137 mg/dl [phone] Mar 28, HDL cholesterol, HDL 37 mg/dl -62 2014Mar 28, LDL cholesterol, LDL 84 mg/dl 0-130 2014Mar 28, thyroid stimulating TSH 2.79 0.34-5.60 2015 hormone, serum uIU/mL Mar 03, cholesterol, serum CHOLESTEROL 190 mg/dl 2010Mar 03, triglyceride, serum, TRIGLYCERIDE 96 mg/dl 2010 fasting Mar 03, HDL cholesterol, HDL 40 mg/dl 2010 serum Mar 03, LDL cholesterol, LDL 131 mg/dl 2010 serum Mar 03, hemoglobin A1C, HGBA1C 9.9 % 2011 blood, as % of total hemoglobin Nov 21, cholesterol, serum CHOLESTEROL 202 mg/dl 2006Nov 21, triglyceride, serum, TRIGLYCERIDE 217 mg/dl 2006 fasting Nov 21, HDL cholesterol, HDL 36 mg/dl 2006 serum Nov 21, LDL cholesterol, LDL 123 mg/dl 2006 serum Nov 21, prostate specific PSA 0.21 ng/mL 2006 antigen Nov 21, thyroid stimulating TSH 1.28 2006 hormone, serum uIU/mL Nov 27, cholesterol, serum CHOLESTEROL 166 mg/dl 2012Nov 27, triglyceride, serum, TRIGLYCERIDE 141 mg/dl 2012 fasting Nov 27, HDL cholesterol, HDL 40 mg/dl 2012 serum Nov 27, LDL cholesterol, LDL 98 mg/dl 2012 serum Nov 27, hemoglobin A1C, HGBA1C 10.5 % 2012 blood, as % of total hemoglobin Nov 06, sodium, serum SODIUM 134 mmol/L 135-143 Low 2014Nov 06, potassium, serum POTASSIUM 4.8 mmol/L 3.3-5.0 2014Nov 06, urea nitrogen, blood BUN 18 mg/dL 07-24Nov 06, creatinine, serum CREATININE 0.75 mg/dL 0.46-1.20 2014Nov 06, hemoglobin A1C, HGBA1C 10.0 % 3.0-6.0 High 2014 blood, as % of total hemoglobin Jan 16, sodium, serum SODIUM 140 mmol/L [phone] Jan 16, potassium, serum POTASSIUM 5.0 mmol/L 3.3-5.0 2014Jan 16, urea nitrogen, blood BUN 77 mg/dL 07-24 High 2014Jan 16, creatinine, serum CREATININE 4.07 mg/dL 0.46-1.20 High 2014Jan 16, hemoglobin A1C, HGBA1C 8.1 % 3.0-6.0 High 2014 blood, as % of total hemoglobin Mar 28, sodium, serum SODIUM 138 mmol/L [phone] Mar 28, potassium, serum POTASSIUM 4.4 mmol/L 3.3-5.0 2014Mar 28, albumin, serum ALBUMIN 3.5 g/dL 3.5-5.0 2014Mar 28, calcium, serum CALCIUM 8.8 mg/dL 8.6-9.8 2014Mar 28, creatinine, serum CREATININE 1.35 mg/dL 0.46-1.20 High 2014Mar 28, urea nitrogen, blood BUN 27 mg/dL 07-24 High 2014Mar 28, alkaline phosphatase, ALK PHOS 49 U/L 32-96 2014 serum Mar 28, aspartate SGOT (AST) 17 U/L 10-42 2014 aminotransferase (SGOT), serum Mar 28, alanine SGPT (ALT) 15 U/L 11-43 2015 aminotransferase (SGPT), serum Mar 28, cholesterol, serum CHOLESTEROL 137 mg/dl [phone] Mar 28, HDL cholesterol, HDL 37 mg/dl 26-62 2014 serum Mar 28, LDL cholesterol, LDL 84 mg/dl 0-130 2014 serum Mar 28, thyroid stimulating TSH 2.79 0.34-5.60 2015 hormone, serum uIU/mL
--- OUTSIDE RECORDS SUMMARY | 2018-10-17 10:01 | XMS REPORT | Continuity of Care Document ---
:1950 Author Organization [facility] Care Team Providers Name Role Phone MD Nancy, Art Unavailable Unavailable Insurance Providers Payer name Policy type / Policy ID Covered green party ID Policy Godoy Coverage type *SELF PAY* SLIDING FEE SCHEDULE - DISCOUNT MEDICARE B-[place]: [employer] *SELF PAY* *SELF PAY* *SELF PAY* Encounters Encounter Performer Location Date Lab Report Art MD Nancy [facility] Apr 14, 2015 Practice Allergies, Adverse Reactions, Alerts Type [...] Active RENAL FAILURE, ACUTE Jan 16, 2015 Inactive POLYNEUROPATHY IN DIABETES Mar 28, 2015 Active [...] HYPERTROPHY, WITH OBSTRUCTION Mar 28, 2015 Active PERIODONTOSIS Apr 14, 2015 Active Procedures Date Description Comments Nov [...] Mar 28, 2015 diabetic foot check yes Apr 14, 2015 smoking status Never smoker Apr 14, 2015 diabetic foot check yes Medications Medication [...] 2 tablet daily Nov 12, 2014 Inactive [id number] KEFLEX 500 MG CAPS 2 capsule 2 times a day Dec 12, 2014 Inactive METFORMIN HCL ER 500 MG 1-2 tablet 2x daily Nov 22, 2014 Inactive SZ30N-KUC KOMBIGLYZE XR 5-1000 MG 1 tablet daily Nov 12, 2014 Inactive [id number]-JCI TOTAL GLUCOSE CONTROL 500 MG 1 BY MOUTH DAILY May 06, 2014 Inactive METOPROLOL TARTRATE 50 MG TABS 1 BY MOUTH DAILY Jan 08, 2015 Active NOVOLIN N RELION 100 UNIT/ML 10 U 2x daily Jan 08, 2015 Active SUSP CIPRO 500 MG TABS 1 tablet q18 hours Mar 28, 2015 Inactive CIALIS 5 MG TABS 1 daily Nov 27, 2012 Active AMOXICILLIN 250 MG CAPS 1 by mouth twice daily Apr 13, 2015 Active ACETAMINOPHEN-CODEINE #3 300-30 1 BY MOUTH NEEDED FOR PAIN Apr 12, 2015 Active MG TABS Vital Signs Date Description Test Result Nov [...] - 8462-4 BP DIASTOLIC 62 mm Hg Apr 14, 2015 weight E&M - 3141-9 WEIGHT 200.6 lb Apr 14, 2015 temperature E&M TEMPERATURE 97.9 deg f Apr 14, 2015 blood pressure, systolic - 8480-6 BP SYSTOLIC 102 mm Hg Apr 14, 2015 blood pressure, diastolic - 8462-4 BP DIASTOLIC 67 mm Hg Apr 14, 2015 pulse rate E&M - 8867-4 PULSE RATE 91 /min Apr 14, 2015 respiratory rate E&M - 9279-1 RESP RATE 16 /min Results Date Description Test Name Value Reference Interpretation Status Nov 06, hemoglobin, blood HGB 14.2 g/dL 12.3-17.3 2014Nov 06, hematocrit, blood HCT 42.5 % 36.7-50.5 2014Apr 14, urine color UA COLOR Light Yellow Yellow 2014Apr 14, bacteria, urine BACTERIA URN Occasional None Seen 2014 microscopy null Mar 28, sodium, serum SODIUM 138 mmol/L [phone] Mar 28, potassium, serum POTASSIUM 4.4 mmol/L 3.3-5.0 2014Mar 28, albumin, serum ALBUMIN 3.5 g/dL 3.5-5.0 2014Mar 28, calcium, serum CALCIUM 8.8 mg/dL 8.6-9.8 2014Mar 28, creatinine, serum CREATININE 1.35 mg/dL 0.46-1.20 High 2014Mar 28, urea nitrogen, BUN 27 mg/dL 10-22 High 2014 blood Mar 28, alkaline ALK PHOS 49 U/L 32-96 2015 phosphatase, serum Mar 28, aspartate SGOT (AST) 17 U/L 10-42 2014 aminotransferase (SGOT), serum Mar 28, alanine SGPT (ALT) 15 U/L -43 2014 aminotransferase (SGPT), serum Mar 28, cholesterol, serum CHOLESTEROL 137 mg/dl [phone] Mar 28, HDL cholesterol, HDL 37 mg/dl -62 2014 serum Mar 28, LDL cholesterol, LDL 84 mg/dl 0-130 2014 serum Mar 28, thyroid stimulating TSH 2.79 uIU/mL 0.34-5.60 2014 hormone, serum Mar 03, cholesterol, serum CHOLESTEROL 190 mg/dl 2010Mar 03, triglyceride, TRIGLYCERIDE 96 mg/dl 2010 serum, fasting Mar 03, HDL cholesterol, HDL 40 mg/dl 2010 serum Mar 03, LDL cholesterol, LDL 131 mg/dl 2010 serum Mar 03, hemoglobin A1C, HGBA1C 9.9 % 2010 blood, as % of total hemoglobin Nov 21, cholesterol, serum CHOLESTEROL 202 mg/dl 2006Nov 21, triglyceride, TRIGLYCERIDE 217 mg/dl 2006 serum, fasting Nov 21, HDL cholesterol, HDL 36 mg/dl 2006 serum Nov 21, LDL cholesterol, LDL 123 mg/dl 2006 serum Nov 21, prostate specific PSA 0.21 ng/mL 2006 antigen Nov 21, thyroid stimulating TSH 1.28 uIU/mL 2006 hormone, serum Nov 27, cholesterol, serum CHOLESTEROL 166 mg/dl 2012Nov 27, triglyceride, TRIGLYCERIDE 141 mg/dl 2012 serum, fasting Nov 27, HDL cholesterol, HDL 40 mg/dl 2012 serum Nov 27, LDL cholesterol, LDL 98 mg/dl 2012 serum Nov 27, hemoglobin A1C, HGBA1C 10.5 % 2012 blood, as % of total hemoglobin Nov 06, sodium, serum SODIUM 134 mmol/L 135-143 Low 2014Nov 06, potassium, serum POTASSIUM 4.8 mmol/L 3.3-5.0 2014Nov 06, urea nitrogen, BUN 18 mg/dL 10-2014 blood Nov 06, creatinine, serum CREATININE 0.75 mg/dL 0.46-1.20 2014Nov 06, hemoglobin A1C, HGBA1C 10.0 % 3.0-6.0 High 2014 blood, as % of total hemoglobin Jan 16, sodium, serum SODIUM 140 mmol/L [phone] Jan 16, potassium, serum POTASSIUM 5.0 mmol/L 3.3-5.0 2014Jan 16, urea nitrogen, BUN 77 mg/dL - High 2014 blood Jan 16, creatinine, serum CREATININE 4.07 mg/dL 0.46-1.20 High 2014Jan 16, hemoglobin A1C, HGBA1C 8.1 % 3.0-6.0 High 2014 blood, as % of total hemoglobin Mar 28, sodium, serum SODIUM 138 mmol/L [phone] Mar 28, potassium, serum POTASSIUM 4.4 mmol/L 3.3-5.0 2014Mar 28, albumin, serum ALBUMIN 3.5 g/dL 3.5-5.0 2014Mar 28, calcium, serum CALCIUM 8.8 mg/dL 8.6-9.8 2014Mar 28, creatinine, serum CREATININE 1.35 mg/dL 0.46-1.20 High 2014Mar 28, urea nitrogen, BUN 27 mg/dL 07-24 High 2014 blood Mar 28, alkaline ALK PHOS 49 U/L 32-96 2014 phosphatase, serum Mar 28, aspartate SGOT (AST) 17 U/L 10-42 2014 aminotransferase (SGOT), serum Mar 28, alanine SGPT (ALT) 15 U/L -43 2015 aminotransferase (SGPT), serum Mar 28, cholesterol, serum CHOLESTEROL 137 mg/dl [phone] Mar 28, HDL cholesterol, HDL 37 mg/dl -62 2014 serum Mar 28, LDL cholesterol, LDL 84 mg/dl 0-130 2014 serum Mar 28, thyroid stimulating TSH 2.79 uIU/mL 0.34-5.60 2015 hormone, serum
--- OUTSIDE RECORDS SUMMARY | 2018-10-17 10:01 | XMS REPORT | Continuity of Care Document ---
:1950 Author Organization [facility] Care Team Providers Name Role Phone Duggan SOURAV Selin Unavailable Unavailable Insurance Providers Payer name Policy type / Coverage Policy ID Covered alliance party ID Policy [employer]oy type *SELF PAY* SLIDING FEE SCHEDULE - DISCOUNT Encounters Encounter Performer Location Date Lab Report Selin Duggan APRN [facility] Nov 06, 2014 Practice Allergies, Adverse Reactions, Alerts Type Substance Reaction Status Drug allergy SULFA Active Problems Problem Effective Dates Problem Status DIABETES MELLITUS Active PERIPHERAL NEUROPATHY Active DIABETES MELLITUS, TYPE II, UNCONTROLLED Active DIABETES MELLITUS,TYPE II,UNCONTROLLED W/NEURO Active COMPLICATIONS ERECTILE DYSFUNCTION Nov 27, 2012 Active SINUSITIS, ACUTE Nov 15, 2013 Active CELLULITIS/ABSCESS, TOE NOS Nov 06, 2014 Active Procedures Date Description Comments Nov 27, 2012 smoking status never smoker Nov 27, 2012 diabetic foot check yes Nov 06, 2014 smoking status never smoker Medications Medication Instructions Start Date Status GLIMEPIRIDE 2 MG TABS 1 PO daily Inactive CIALIS 5 MG TABS 1-4 as directed. Nov 27, 2012 Active AUGMENTIN 875-125 MG TABS 1 tablet PO BID for 10 days Nov 15, 2013 Inactive TOTAL GLUCOSE CONTROL 500 MG 1 BY MOUTH DAILY May 06, 2014 Active METFORMIN HCL 500 MG TABS 1 PO bid Nov 15, 2013 Inactive QNASL 80 MCG/ACT AERS 2 sprays to each nostril daily Nov 15, 2013 Inactive KEFLEX 500 MG CAPS 1 tablet PO TID for 10 days Nov 06, 2014 Active ANTISEPTIC SKIN CLEANSER 4 % Cleanse area BID after warm soak Nov 06, 2014 Active SOLN Vital Signs Date Description Test Result Nov [...] - 8462-4 BP DIASTOLIC 70 mm Hg Results Date Description Test Name Value Reference Interpretation Status Nov 06, hemoglobin, blood HGB 14.2 g/dL 12.3-17.3 2014Nov 06, hematocrit, blood HCT 42.5 % 36.7-50.5 2014Mar 03, cholesterol, serum CHOLESTEROL 190 mg/dl 2010Mar [...] 0.21 ng/mL 2006 antigen Nov 21, thyroid TSH 1.28 uIU/mL 2006 stimulating hormone, serum Nov 27, cholesterol, serum CHOLESTEROL [...]
--- OUTSIDE RECORDS SUMMARY | 2018-10-17 10:01 | XMS REPORT | Continuity of Care Document ---
:1950 Author Organization [facility] Care Team Providers Name Role Phone Urban SOURAV Selin Unavailable Unavailable Insurance Providers Payer name Policy type / Coverage Policy ID Covered libertarian ID Policy Godoy type *SELF PAY* SLIDING FEE SCHEDULE - DISCOUNT Encounters Encounter Performer Location Date Office Visit Selin Duggan APRN [facility] Nov Practice Allergies, Adverse Reactions, Alerts Type Substance [...]
--- OUTSIDE RECORDS SUMMARY | 2018-10-17 10:01 | XMS REPORT | Continuity of Care Document ---
:1950 Author Organization [facility] Care Team Providers Name Role Phone SOURAV Duggan Selin Unavailable Unavailable Insurance Providers Payer name Policy type / Coverage Policy ID Covered republican ID Policy Godoy type *SELF PAY* SLIDING FEE SCHEDULE - DISCOUNT Encounters Encounter Performer Location Date Office Visit Selin Duggan APRN [facility] Nov Practice Allergies, Adverse Reactions, Alerts Type [...] Nov 12, 2014 smoking status never smoker Medications Medication [...] warm soak Nov 06, 2014 Active SOLN METFORMIN HCL ER (OSM) 1000 MG 1 tablet PO daily with first Nov 12, 2014 Active [id number] meal of day with food ONGLYZA 5 MG TABS 1 tablet PO daily Nov 12, 2014 Active Vital Signs Date Description Test Result [...] 99.3 deg f Nov 15, 2013 weight Iona&Petty - 3141-9 WEIGHT 217 lb Nov 15, 2013 blood pressure, systolic - 8480-6 BP SYSTOLIC 120 mm Hg Nov 15, 2013 blood pressure, diastolic - 8462-4 BP DIASTOLIC 80 mm Hg Nov 15, 2013 respiratory rate E&M - 9279-1 RESP RATE 18 /min Nov 15, 2013 pulse rate E&M - 8867-4 PULSE RATE 89 /min Nov 06, 2014 weight Iona&Petty - 3141-9 WEIGHT 213 lb Nov 06, [...] 70 mm Hg Nov 12, 2014 weight Iona&Petty - 3141-9 WEIGHT 210.0 lb Nov 12, [...] - 8462-4 BP DIASTOLIC 80 mm Hg Results Date Description Test Name [...] 2014Nov 06, urea nitrogen, BUN 18 mg/dL -22 2014 blood Nov 06, creatinine, serum CREATININE 0.75 mg/dL 0.46-1.20 2014Nov 06, hemoglobin A1C, HGBA1C 10.0 % 3.0-6.0 High 2015 blood, as % of total hemoglobin
--- OUTSIDE RECORDS SUMMARY | 2018-10-17 10:01 | XMS REPORT | Continuity of Care Document ---
:1950 Author Organization [facility] Care Team Providers Name Role Phone ULISES Duggan Selin Unavailable Unavailable Insurance Providers Payer name Policy type / Coverage Policy ID Covered green party ID Policy Godoy type *SELF PAY* SLIDING FEE SCHEDULE - DISCOUNT Encounters Encounter Performer Location Date Office Visit ULISES [facility] Nov 15, 2013 Practice Allergies, Adverse Reactions, Alerts Type Substance Reaction Status Drug allergy SULFA Active Problems Problem Effective Dates Problem Status DIABETES MELLITUS Active PERIPHERAL NEUROPATHY Active DIABETES MELLITUS, TYPE II, UNCONTROLLED Active DIABETES MELLITUS,TYPE II,UNCONTROLLED W/NEURO Active COMPLICATIONS ERECTILE DYSFUNCTION Nov 27, 2012 Active SINUSITIS, ACUTE Nov 15, 2013 Active Procedures Date Description Comments Nov 27, 2012 smoking status never smoker Nov 27, 2012 diabetic foot check yes Medications Medication Instructions Start Date Status GLIMEPIRIDE 2 MG TABS 1 PO daily Inactive CIALIS 5 MG TABS 1-4 as directed. Nov 27, 2012 Active METFORMIN HCL 500 MG TABS 1 PO bid Nov 15, 2013 Active QNASL 80 MCG/ACT AERS 2 sprays to each nostril daily Nov 15, 2013 Active AUGMENTIN 875-125 MG TABS 1 tablet PO BID for 10 days Nov 15, 2013 Active Vital Signs Date Description Test Result [...] E&M - 8867-4 PULSE RATE 89 /min Results Date Description Test Name Value Reference Interpretation Status Mar 03, cholesterol, serum CHOLESTEROL 190 mg/dl [...]
[2018-10-17] MEDS ORDERED: DEXAMETHASONE 10 MG/ML VIAL ONE (10:02)
[2018-10-17] MEDS ORDERED: MIDAZOLAM HCL 2 MG/2 ML INJ ONE (10:02)
[2018-10-17] MEDS ORDERED: FENTANYL CITR 100 MCG/2 ML ONE (10:02)
[2018-10-17] MEDS ORDERED: LIDOCAINE 2% MPF 5 ML VIAL ONE (10:02)
[2018-10-17] MEDS ORDERED: PROPOFOL 200 MG/20 ML VIAL IV ONE (10:02)
--- OUTSIDE RECORDS SUMMARY | 2018-10-17 10:02 | XMS REPORT | Continuity of Care Document ---
:1950 Author Organization [facility] Care Team Providers Name Role Phone MD Nancy, Art Unavailable Unavailable Insurance Providers Payer name Policy type / Coverage Policy ID Covered libertarian ID Policy Godoy type *SELF PAY* SLIDING FEE SCHEDULE - DISCOUNT Encounters Encounter Performer Location Date Office Visit Corey Cruz MD [facility] Jan Practice Allergies, Adverse Reactions, Alerts Type Substance Reaction Status Drug allergy SULFA Active Problems Problem Effective Dates Problem Status DIABETES MELLITUS Active PERIPHERAL NEUROPATHY Active DIABETES MELLITUS, TYPE II, UNCONTROLLED Active DIABETES MELLITUS,TYPE II,UNCONTROLLED W/NEURO Active COMPLICATIONS ERECTILE DYSFUNCTION Nov 27, 2012 Active SINUSITIS, ACUTE Nov 15, 2013 Active CELLULITIS/ABSCESS, TOE NOS Nov 06, 2014 Active LOWER LIMB AMPUTATION, FOOT Jan 16, 2015 Active RENAL FAILURE, ACUTE Jan 16, 2015 Active Procedures Date Description Comments Nov 27, 2012 smoking status never smoker Nov 27, 2012 diabetic foot check yes Nov 06, 2014 smoking status never smoker Nov 12, 2014 smoking status never smoker Dec 12, 2014 smoking status Never smoker Dec 12, 2014 diabetic foot check yes Dec 26, 2014 smoking status Never smoker Jan 16, 2015 smoking status Never smoker Medications Medication Instructions Start Date Status [...] 2 tablet daily Nov 12, 2014 Inactive [id number]-UHR KEFLEX 500 MG CAPS 2 capsule 2 times a day Dec 12, 2014 Inactive METFORMIN HCL ER 500 MG 1-2 tablet 2x daily Nov 22, 2014 Inactive ZW48E-LVU NOVOLIN R RELION 100 UNIT/ML 10 u 2x daily Jan 08, 2015 Active SOLN KOMBIGLYZE XR 5-1000 MG 1 tablet daily Nov 12, 2014 Inactive ZB39D-EGJ TOTAL GLUCOSE CONTROL 500 MG 1 BY MOUTH DAILY May 06, 2014 Inactive METOPROLOL TARTRATE 50 MG TABS 1 BY MOUTH DAILY Jan 08, 2015 Active Vital Signs Date Description Test Result [...] 2010 blood, as % of total hemoglobin Feb 19, cholesterol, serum CHOLESTEROL 202 mg/dl 2006Nov 21, [...] 2014Nov 06, urea nitrogen, BUN 18 mg/dL 10-22 2014 blood Nov 06, creatinine, serum CREATININE 0.75 mg/dL 0.46-1.20 2014Nov 06, hemoglobin A1C, HGBA1C 10.0 % 3.0-6.0 High 2015 blood, as % of total hemoglobin
--- OUTSIDE RECORDS SUMMARY | 2018-10-17 10:02 | XMS REPORT | Continuity of Care Document ---
:1950 Author Organization [facility] Care Team Providers Name Role Phone MD Nancy, Art Unavailable Unavailable Insurance Providers Payer name Policy type / Policy ID Covered republican ID Policy Godoy Coverage type *SELF PAY* SLIDING FEE SCHEDULE - DISCOUNT MEDICARE [place]: [employer] *SELF PAY* *SELF PAY* Encounters Encounter Performer Location Date Lab Report Art MD Nancy [facility] Mar 28, 2015 Practice Allergies, Adverse Reactions, [...] 2 tablet daily Nov 12, 2014 Inactive [id number]-SLU KEFLEX 500 MG CAPS 2 capsule 2 times a day Dec 12, 2014 Inactive METFORMIN HCL ER 500 MG 1-2 tablet 2x daily Nov 22, 2014 Inactive WK45I-BHO KOMBIGLYZE XR 5-1000 MG 1 tablet daily Nov 12, 2014 Inactive JK15P-JPZ TOTAL GLUCOSE CONTROL 500 MG 1 BY MOUTH DAILY May 06, 2014 Inactive METOPROLOL TARTRATE 50 MG TABS 1 BY MOUTH DAILY Jan 08, 2015 Active NOVOLIN N RELION 100 UNIT/ML 10 U 2x daily Jan 08, 2015 Active SUSP CIPRO 500 MG TABS 1 tablet q18 hours Mar 28, 2015 Active CIALIS 5 MG TABS 1 daily Nov [...] Mar 03, HDL cholesterol, HDL 40 mg/dl 2010Mar 03, LDL cholesterol, LDL 131 mg/dl 2010 [...] Jan 16, sodium, serum SODIUM 140 mmol/L [phone] Jan 16, potassium, serum POTASSIUM 5.0 mmol/L 3.3-5.0 2014Jan 16, urea nitrogen, BUN 77 mg/dL 10-22 High 2014 blood Jan 16, creatinine, serum CREATININE 4.07 mg/dL 0.46-1.20 High 2014Jan 16, hemoglobin A1C, HGBA1C 8.1 % 3.0-6.0 High 2014 blood, as % of total hemoglobin
--- OUTSIDE RECORDS SUMMARY | 2018-10-17 10:02 | XMS REPORT | Continuity of Care Document ---
:[address] [facility] Care Team Providers Name Role Phone SOURAV Duggan Selin Unavailable Unavailable Insurance Providers Payer name Policy type / Coverage Policy ID Covered alliance party ID Policy Godoy type *SELF PAY* SLIDING FEE SCHEDULE - DISCOUNT Encounters Encounter Performer Location Date Office Visit Selin Duggan APRN [facility] Dec Practice Allergies, Adverse Reactions, Alerts Type Substance [...] Dec 12, 2014 diabetic foot check yes Medications Medication Instructions [...] 2 tablet daily Nov 12, 2014 Inactive [id number]-WLT KEFLEX 500 MG CAPS 2 capsule 2 times a day Dec 12, 2014 Active KOMBIGLYZE XR 5-1000 MG 1 tablet daily Nov 12, 2014 Active [id number]-FXG METFORMIN HCL ER 500 MG 1-2 tablet 2x daily Nov 22, 2014 Inactive FF98I-MYG Vital Signs Date Description Test Result Nov [...] 2014Nov 06, urea nitrogen, BUN 18 mg/dL -2014 blood Nov 06, creatinine, serum CREATININE 0.75 mg/dL 0.46-1.20 2014Nov 06, hemoglobin A1C, HGBA1C 10.0 % 3.0-6.0 High 2015 blood, as % of total hemoglobin
--- OUTSIDE RECORDS SUMMARY | 2018-10-17 10:02 | XMS REPORT | Continuity of Care Document ---
:1950 Author Organization [facility] Care Team Providers Name Role Phone MD Nancy, Art Unavailable Unavailable Insurance Providers Payer name Policy type / Coverage Policy ID Covered libertarian ID Policy Godoy type *SELF PAY* SLIDING FEE SCHEDULE - DISCOUNT Encounters Encounter Performer Location Date Office Visit Corey Cruz MD [facility] Dec Practice Allergies, Adverse Reactions, [...] Dec 26, 2014 smoking status Never smoker Medications Medication Instructions [...] 2 tablet daily Nov 12, 2014 Inactive PB02U-ZWO KEFLEX 500 MG CAPS 2 capsule 2 times a day Dec 12, 2014 Inactive KOMBIGLYZE XR 5-1000 MG 1 tablet daily Nov 12, 2014 Active EO30N-WHC METFORMIN HCL ER 500 MG 1-2 tablet 2x daily Nov 22, 2014 Inactive GC41I-PID Vital Signs Date Description Test Result Nov [...] - 8462-4 BP DIASTOLIC 58 mm Hg Results Date Description Test Name Value Reference Interpretation Status Nov 06, hemoglobin, blood HGB 14.2 g/dL 12.3-17.3 2014Nov 06, hematocrit, blood HCT 42.5 % 36.7-50.5 2014Mar 03, cholesterol, serum CHOLESTEROL 190 mg/dl 2010Mar 03, triglyceride, TRIGLYCERIDE 96 mg/dl 2010 serum, fasting Mar 03, HDL cholesterol, HDL 40 mg/dl 2010Mar 03, LDL cholesterol, LDL 131 mg/dl 2010Mar 03, hemoglobin A1C, HGBA1C 9.9 % 2010 [...]
--- OUTSIDE RECORDS SUMMARY | 2018-10-17 10:02 | XMS REPORT | Continuity of Care Document ---
:1950 Author Organization [facility] Care Team Providers Name Role Phone MD Nancy, Art Unavailable Unavailable Insurance Providers Payer name Policy type / Coverage Policy ID Covered libertarian ID Policy Godoy type *SELF PAY* SLIDING FEE SCHEDULE - DISCOUNT Encounters Encounter Performer Location Date Lab Report Art MD Nancy [facility] Jan 16, 2015 Practice Allergies, Adverse Reactions, Alerts Type [...] 2 tablet daily Nov 12, 2014 Inactive [id number] KEFLEX 500 MG CAPS 2 capsule 2 times a day Dec 12, 2014 Inactive METFORMIN HCL ER 500 MG 1-2 tablet 2x daily Nov 22, 2014 Inactive VT41U-PFI NOVOLIN R RELION 100 UNIT/ML 10 u 2x daily Jan 08, 2015 Active SOLN KOMBIGLYZE XR 5-1000 MG 1 tablet daily Nov 12, 2014 Inactive AC15B-NMG TOTAL GLUCOSE CONTROL 500 MG 1 BY [...] 2014Nov 06, urea nitrogen, BUN 18 mg/dL 07-24 blood Nov 06, creatinine, serum CREATININE 0.75 mg/dL 0.46-1.20 2014Nov 06, hemoglobin A1C, HGBA1C 10.0 % 3.0-6.0 High 2014 blood, as % of total hemoglobin Jan 16, sodium, serum SODIUM 140 mmol/L [phone] Jan 16, potassium, serum POTASSIUM 5.0 mmol/L 3.3-5.0 2014Jan 16, urea nitrogen, BUN 77 mg/dL 07-24 High 2014 blood Jan 16, creatinine, serum CREATININE 4.07 mg/dL 0.46-1.20 High 2014Jan 16, hemoglobin A1C, HGBA1C 8.1 % 3.0-6.0 High 2014 blood, as % of total hemoglobin
--- OUTSIDE RECORDS SUMMARY | 2018-10-17 10:03 | XMS REPORT | Summary of Care ---
:[address] [facility] Address [address] [place] [address]- Encounter HQ Mery_jose(FIN) [id number] Date(s): 08/18/17 - 08/18/[address] [address]- [phone] Discharge Disposition: Home or Self Care Attending Physician: Corey Cruz MD Vital Signs Most recent to oldest [Reference Range]: 1 2 Height 182.88 cm (08/18/17 8:36 AM) Temperature Oral [96.4-99.1 DegF] 97.9 DegF (08/18/17 8:36 AM) Blood Pressure [90-140/60-90 mmHg] 140/74 mmHg 152/84 mmHg (08/18/17 9:09 AM) *HI* (08/18/17 8:36 AM) Peripheral Pulse Rate [60-100 bpm] 73 bpm (08/18/17 8:36 AM) Weight 100 kg (08/18/17 8:36 AM) Body Mass Index 29.9 m2 (08/18/17 8:36 AM) Problem List Condition Effective Dates Status Health Status Informant Benign prostatic hypertrophy with 03/28/15 Resolved outflow obstruction1, 2 Chronic kidney disease stage 33 03/28/15 Active Diabetes(Confirmed) Resolved 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 Resolved type 2 diabetes mellitus4 Diabetic peripheral neuropathy5 03/28/15 Active Diabetic polyneuropathy6 03/28/15 Resolved HTN - Hypertension(Confirmed) Resolved Impotence7 11/27/12 Resolved Neurologic disorder associated with Resolved type 2 diabetes mellitus8 Neuropathic pain(Confirmed) Resolved 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 Resolved retinopathy9 Obesity(Confirmed) Active Peripheral nerve uqxgnli11 Resolved Skin cancer(Confirmed) Resolved Urinary tract infectious unuvxpi99, 03/28/15 Active 12 1Data migrated from [employer] on 05/07/15.2Data migrated from [employer] on 04/09/15.3Data migrated from [employer] on 04/09/15.4Data migrated from [employer] on 04/09/15.5Data migrated from [employer] on 04/09/15.6Data migrated from [employer] on 04/09/15.7Data migrated from [employer] on 03/01/15.8Data migrated from [employer] on 03/01/15.9Data migrated from [employer] on .10Data migrated from [employer] on 03/01/15.11Data migrated from [employer] on 05/07/15.12Data migrated from [employer] on 04/09/15. Allergies, Adverse Reactions, Alerts Substance Reaction Severity Status sulfa drugs1 Active lisinopril2 Mild Active 1Data migrated from [employer] on 05/01/15. Originally documented as SULFA.2headache Medications Haylee-D 12 Hour Allergy & Congestion 1 tab, PO, Q12H, 0 Refill(s) Start Date: 08/18/17 Status: Ordered Results No data available for this section Immunizations Given and Recorded Vaccine Date Status Refusal Reason pneumococcal 23-valent vaccine1 08/18/17 Given influenza virus vaccine, inactivated2 08/31/16 Given pneumococcal 13-valent vaccine3 08/31/16 Given Not Given Vaccine Date Status Refusal Reason pneumococcal 23-valent vaccine 12/26/14 Not Given Patient Refuses 1Result Comment: given by akua elena tolerated well no adverse [id number] Comment: [facility]: [id number] No adverse reactions noted.3Result Comment: [facility]: [id number] No adverse reactions noted. Procedures Procedure Date Related Diagnosis Body Site Transmetatarsal amputation of foot1 12/27/14 Excision of skin for graft 1Left foot transmetatarsal amputation Social History Social History Type Response Substance Abuse Use: None. Employment/School 1 Alcohol Never Smoking Status Never smoker; Exposure to Tobacco Smoke None; Cigarette Smoking Last 365 Days No; Reg Smoking Cessation Counseling No 1RETIRED. LIVES WITH Assessment and Plan No data available for this section
--- OUTSIDE RECORDS SUMMARY | 2018-10-17 10:03 | XMS REPORT | Summary of Care ---
:1950 Author Organization [facility] Address [address] [place] [address]- Encounter HQ Mery_jose(FIN) [id number] Date(s): 09/14/17 - 09/14/17 [facility] [address] [place] [address]- [phone] Discharge Disposition: Home or Self Care Attending Physician: Corey Cruz MD Vital Signs Most recent to oldest [Reference Range]: 1 Temperature Oral [96.4-99.1 DegF] 97.8 DegF (09/14/17 11:36 AM) Blood Pressure [90-140/60-90 mmHg] 144/76 mmHg *HI* (09/14/17 11:36 AM) Peripheral Pulse Rate [60-100 bpm] 82 bpm (09/14/17 11:36 AM) Weight 98.807 kg (09/14/17 11:36 AM) Problem List Condition Effective Dates Status [...] 03/28/15 Resolved retinopathy9 Obesity(Confirmed) Active Peripheral nerve Resolved Skin cancer(Confirmed) Resolved Urinary tract infectious olpuvbv05, 03/28/15 Active 12 1Data migrated from [employer] on 05/07/15.2Data migrated from [employer] on [...] on 05/01/15. Originally documented as SULFA.2headache Medications metroNIDAZOLE 250 mg oral tablet 250 mg=1 tab, PO, TID, X 7 day, # 21 tab, 0 Refill(s), Pharmacy: [id number] Start Date: 09/14/17 Stop Date: 09/21/17 Status: Ordered Results No data available for this section Immunizations Given and Recorded Vaccine Date Status Refusal Reason pneumococcal 23-valent vaccine1 08/18/17 Given influenza virus vaccine, inactivated2 08/31/16 Given pneumococcal 13-valent vaccine3 08/31/16 Given Not Given Vaccine Date Status Refusal Reason pneumococcal 23-valent vaccine 12/26/14 Not Given Patient Refuses 1Result Comment: given by akua elena tolerated well no adverse [id number] Comment: [facility]: [id number] No adverse reactions noted.3Result Comment: [facility]: [id number] No adverse reactions noted. Procedures Procedure Date [...]
--- OUTSIDE RECORDS SUMMARY | 2018-10-17 10:03 | XMS REPORT | Summary of Care ---
:1950 Author Organization [facility] Address [address] [place] [address]- Encounter HQ Mery_jose(FIN) [id number] Date(s): 02/21/18 - 02/21/[address] [address]- [phone] Discharge Disposition: Home or Self Care Attending Physician: Corey Cruz MD Vital Signs Most recent to oldest [Reference Range]: 1 Height 182.88 cm (02/21/18 8:16 AM) Temperature Oral [96.4-99.1 DegF] 98.1 DegF (02/21/18 8:16 AM) Blood Pressure [90-140/60-90 mmHg] 169/80 mmHg *HI* (02/21/18 8:16 AM) Peripheral Pulse Rate [60-100 bpm] 70 bpm (02/21/18 8:16 AM) Weight 100 kg (02/21/18 8:16 AM) Body Mass Index 29.9 m2 (02/21/18 8:16 AM) Problem List Condition Effective Dates Status Health Status Informant Acute renal failure syndrome1, 2 01/16/15 Resolved Carcinomas, basal cell(Confirmed) Active Benign prostatic hypertrophy with 03/28/15 Resolved outflow obstruction3, 4 Cellulitis and abscess of toe5, 6 11/06/14 Resolved Low HDL (under 40)(Confirmed) Active Chronic kidney disease stage 37 03/28/15 Active Diabetes(Confirmed) Resolved 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 Active type 2 diabetes mellitus(Confirmed)8 Diabetic peripheral neuropathy9 03/28/15 Active Diabetic nqkilsylcqpyry25 03/28/15 Resolved Status post transmetatarsal Active amputation of left foot(Confirmed) HTN - Hypertension(Confirmed) Resolved Grkrtiodj78 11/27/12 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 Mixed hyperlipidemia(Confirmed) Active Foot neuralgia(Confirmed) Active Neurologic disorder associated with Resolved type 2 diabetes jfjhecim62 Neuropathic pain(Confirmed) Resolved 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 Resolved kdohocitgxu14 Obesity(Confirmed) Active Peripheral 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 Skin cancer(Confirmed) Resolved Type II diabetes mellitus Resolved uncontrolled(Confirmed)16 Urinary tract infectious jzhehjq01, 03/28/15 Active 18 1Data migrated from [employer] on 04/09/15.2Data migrated from [employer] on 03/04/15.3Data migrated from [employer] on 05/07/15.4Data migrated from [employer] on 04/09/15.5Data migrated from [employer] on 04/09/15.6Data migrated from [employer] on 03/04/15.7Data migrated from [employer] on 04/09/15.8Data migrated from [employer] on 04/09/15.9Data migrated from [employer] on .10Data migrated from [employer] on 04/09/15.11Data migrated from [employer] on 03/01/15.12Data migrated from [employer] on 05/07/15.13Data migrated from [employer] on 03/01/15.14Data migrated from [employer] on 04/09.15Data migrated from [employer] on 03/01/15.16Data migrated from [employer] on 03/01/15.17Data migrated from [employer] on 05/07/15.18Data migrated from [employer] on 04/09/15. Allergies, Adverse Reactions, Alerts Substance Reaction Severity Status sulfa drugs1 Active lisinopril2 Mild Active 1Data migrated from [employer] on 05/01/15. Originally documented as SULFA.2headache Medications Multi Vitamin+ 0 Refill(s) Start Date: 02/21/18 Status: Ordered Results No data available for this section Immunizations Given and Recorded Vaccine Date Status Refusal Reason pneumococcal 23-valent vaccine1 08/18/17 Given influenza virus vaccine, inactivated2 08/31/16 Given pneumococcal 13-valent vaccine3 08/31/16 Given Not Given Vaccine Date Status Refusal Reason pneumococcal 23-valent vaccine 12/26/14 Not Given Patient Refuses 1Result Comment: given by akua marie ulices tolerated well no adverse [id number] Comment: [facility]: [id number] No adverse reactions noted.3Result Comment: [facility]: [id number] No adverse reactions noted. Procedures Procedure Date Related Diagnosis Body Site Status Transmetatarsal amputation of foot1 12/27/14 Completed Excision of skin for graft Completed 1Left foot transmetatarsal amputation Social History Social History Type Response Substance Abuse Use: None. Employment/School 1 Alcohol Never Smoking Status Never smoker; Exposure to Tobacco Smoke None; Cigarette Smoking Last 365 Days No; Reg Smoking Cessation Counseling No entered on: 02/21/18 1RETIRED. LIVES WITH Assessment and Plan No data available for this section
--- OUTSIDE RECORDS SUMMARY | 2018-10-17 10:03 | XMS REPORT | Summary of Care ---
:1950 Author Organization [facility] Address [address] [place] [address]- Encounter HQ Hermelinda(FIN) [id number] Date(s): 09/28/17 - 09/28/[address] [address]- [phone] Discharge Disposition: Home or Self Care Attending Physician: Corey Cruz MD Vital Signs Most recent to oldest [Reference Range]: 1 Temperature Oral [96.4-99.1 DegF] 98.1 DegF (09/28/17 3:33 PM) Blood Pressure [90-140/60-90 mmHg] 117/69 mmHg (09/28/17 3:33 PM) Peripheral Pulse Rate [60-100 bpm] 81 bpm (09/28/17 3:33 PM) Weight 100.568 kg (09/28/17 3:33 PM) Problem List Condition Effective Dates Status Health Status Informant Carcinomas, basal cell(Confirmed) Active Benign prostatic hypertrophy with 03/28/15 Resolved outflow obstruction1, 2 Chronic kidney disease stage 33 03/28/15 Active Diabetes(Confirmed) Resolved 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 Resolved type 2 diabetes mellitus4 Diabetic peripheral neuropathy5 03/28/15 Active Diabetic polyneuropathy6 03/28/15 Resolved HTN - Hypertension(Confirmed) Resolved Impotence7 11/27/12 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) Active Neurologic disorder associated with Resolved type 2 diabetes mellitus9 Neuropathic pain(Confirmed) Resolved 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 Resolved gwkxnigspew80 Obesity(Confirmed) Active Peripheral nerve Resolved Skin cancer(Confirmed) Resolved Type II diabetes mellitus Resolved uncontrolled(Confirmed)12 Urinary tract infectious peeoppi14, 03/28/15 Active 14 1Data migrated from [employer] on 05/07/15.2Data migrated from [employer] on 04/09/15.3Data migrated from [employer] on 04/09/15.4Data migrated from [employer] on 04/09/15.5Data migrated from [employer] on 04/09/15.6Data migrated from [employer] on 04/09/15.7Data migrated from [employer] on 03/01/15.8Data migrated from [employer] on 05/07/15.9Data migrated from [employer] on .10Data migrated from [employer] on 04/09/15.11Data migrated from [employer] on 03/01/15.12Data migrated from [employer] on 03/01/15.13Data migrated from [employer] on 05/07/15.14Data migrated from [employer] on . Allergies, Adverse Reactions, Alerts Substance Reaction Severity Status sulfa drugs1 Active lisinopril2 Mild Active 1Data migrated from [employer] on 05/01/15. Originally documented as SULFA.2headache Medications gabapentin 300 mg oral capsule 300 mg=1 cap, PO, BID, increase by 1 weekly if needed up to qid., # 180 cap, 1 Refill(s), Pharmacy: [id number] Start Date: 09/28/17 Stop Date: 03/27/18 Status: Ordered Results No data available for this section Immunizations Given and Recorded Vaccine Date Status Refusal Reason pneumococcal 23-valent vaccine1 08/18/17 Given influenza virus vaccine, inactivated2 08/31/16 Given pneumococcal 13-valent vaccine3 08/31/16 Given Not Given Vaccine Date Status Refusal Reason pneumococcal 23-valent vaccine 12/26/14 Not Given Patient Refuses 1Result Comment: given by akua elena tolerated well no adverse [id number] Comment: [facility]: [id number] No adverse reactions noted.3Result Comment: [facility]: [id number] No adverse reactions noted. Procedures Procedure Date [...]
--- OUTSIDE RECORDS SUMMARY | 2018-10-17 10:03 | XMS REPORT | Summary of Care ---
:1950 Author Encounter [facility] Hermelinda(NASIR) [id number] Date(s): 12/26/14 - 01/08/15 [facility] [address] [place] [address]- Discharge Disposition: Home Physician Attending: Joslyn Brown MD Physician Admitting: Joslyn Brown MD Vital Signs Most recent to oldest 1 2 3 [Reference Range]: Height 185.42 cm 185.42 cm 185.42 cm (12/26/14 5:24 PM) (12/26/14 5:22 PM) (12/26/14 12:56 PM) Temperature Oral [96.4-99.1 97.8 DegF 97.3 DegF 98.4 DegF DegF] (01/08/15 2:59 PM) (01/08/15 11:42 AM) (01/08/15 7:39 AM) Blood Pressure [90-140/60-90 153/78 mmHg 166/82 mmHg 159/77 mmHg mmHg] *HI* *HI* *HI* (01/08/15 2:59 PM) (01/08/15 11:42 AM) (01/08/15 7:39 AM) Respiratory Rate [14-20 BRMIN] 16 BRMIN 18 BRMIN 18 BRMIN (01/08/15 2:59 PM) (01/08/15 11:42 AM) (01/08/15 7:39 AM) Peripheral Pulse Rate [60-100 67 bpm 74 bpm 76 bpm bpm] (01/08/15 2:59 PM) (01/08/15 11:42 AM) (01/08/15 7:39 AM) Weight 92.1 kg 92.074 kg 100.9 kg (12/26/14 5:24 PM) (12/26/14 5:22 PM) (12/26/14 12:56 PM) Body Mass Index 26.79 m2 26.78 m2 29.35 m2 (12/26/14 5:24 PM) (12/26/14 5:22 PM) (12/26/14 12:56 PM) Problem List Condition Effective Dates Status Health Status Informant Diabetes(Confirmed) Resolved HTN - Hypertension(Confirmed) Resolved Neuropathic pain(Confirmed) Resolved Skin cancer(Confirmed) Resolved Allergies, Adverse Reactions, Alerts Substance Reaction Severity Status sulfa drugs Active Medications acetaminophen 1,000 mg, 100 mL, Route: IVPB, Drug form: INJ, ONCE, Dosing Weight 92.1, kg, PRN Pain Score 1-3, Start date: 12/27/14 17:10:00, Duration: 1 doses or times, Stop date: Limited # of times Notes: Infuse over 15 minutes Do not exceed 4gm/day of acetaminophen Start Date: 12/27/14 Stop Date: 12/27/14 Status: Completedacetaminophen 650 mg, 2 tab, Route: PO, Drug form: TAB, Q4H, Dosing Weight 92.1, kg, PRN Pain 1-3/Temp > 100.4 F, Start date: 12/26/14 17:44:00, Duration: 30 day, Stop date: 01/25/15 17:43:00 Notes: Do not exceed 4 gm/day. (Same as: Tylenol) Start Date: 12/26/14 Stop Date: 01/08/15 Status: Discontinuedacetaminophen-hydrocodone 325 mg-10 mg oral tablet 1 tab, Route: PO, Drug Form: TAB, Dosing Weight 92.1, kg, Q4H, PRN Pain Score 4- 6, Start date: 12/26/14 17:44:00, Duration: 30 day, Stop date: 01/25/15 17:43:00 Notes: Do not exceed 4gm/day of acetaminophen. (Same as: [place] 325/10) Start Date: 12/26/14 Stop Date: 01/08/15 Status: Discontinuedacetaminophen-hydrocodone 325 mg-5 mg oral tablet 1 tab, Route: PO, Drug Form: TAB, Dosing Weight 92.1, kg, Q4H, PRN Pain Score 1- 3, Start date: 12/26/14 17:44:00, Duration: 30 day, Stop date: 01/25/15 17:43:00 Notes: (Same as: [place] 325/5) Do not exceed 4gm/day of acetaminophen. Start Date: 12/26/14 Stop Date: 01/08/15 Status: Discontinuedascorbic acid 500 mg, 1 tab, Route: PO, Drug form: TAB, BID, Dosing Weight 92.1, kg, Start date: 01/06/15 9:00:00,Duration: 30 day, Stop date: 02/04/15 17:00:00 Notes: (Same as: Vitamin C) Start Date: 01/06/15 Stop Date: 01/08/15 Status: Discontinuedaspirin 81 mg tablet, enteric coated 81 mg=1 tab, PO, Daily, # 0 tab, 0 Refill(s) Start Date: 01/08/15 Status: OrderedAugmentin 500 mg oral tablet 1 tab, PO, Q12H, # 20 tab, 0 Refill(s) Start Date: 01/08/15 Status: OrderedAugmentin 500 mg oral tablet 1 tab, Route: PO, Drug Form: TAB, Dosing Weight 92.1, kg, Q12H, Start date: 03/17 21:00:00, Duration: 30 day, Stop date: 02/05/15 9:00:00 Notes: With food.(Same as: Augmentin 500) Start Date: 01/06/15 Stop Date: 01/08/15 Status: DiscontinuedAugmentin 500 mg oral tablet 1 tab, PO, Q12H, # 20 tab, 0 Refill(s) Start Date: 01/08/15 Stop Date: 01/08/15 Status: DiscontinuedAugmentin 875 mg oral tablet 875 mg=1 tab, PO, Q12H, # 28 tab, 0 Refill(s) Start Date: 01/02/15 Stop Date: 01/08/15 Status: Discontinuedclindamycin + Sodium Chloride 0.9% IV 50 mL 900 mg, 6 mL, Route: IVPB, Drug form: INJ, Q8H, Dosing Weight 100.9, kg, Priority: STAT, Start date:12/26/14 15:25:00, Stop date: 01/25/15 10:00:00 Notes: Same as: Cleocin Start Date: 12/26/14 Stop Date: 12/28/14 Status: DiscontinuedDextrose 50% Syringe 25 gm, 50 mL, Route: IVP, Drug Form: INJ, Dosing Weight 92.1, kg, PRN, PRN Blood Glucose Results, Start date: 12/26/14 17:42:00, Duration: 30 day, Stop date: 01/25/15 17:41:00 Start Date: 12/26/14 Stop Date: 01/08/15 Status: DiscontinuedDextrose 50% Syringe 12.5 gm, 25 mL, Route: IVP, Drug Form: INJ, Dosing Weight 92.1, kg, PRN, PRN Blood Glucose Results, Start date: 12/26/14 17:42:00, Duration: 30 day, Stop date: 01/25/15 17:41:00 Start Date: 12/26/14 Stop Date: 01/08/15 Status: DiscontinueddiphenhydrAMINE 12.5 mg, 0.25 mL, Route: IVP, Drug form: INJ, Q6H, Dosing Weight 92.1, kg, PRN Itching, Start date: 12/27/14 17:10:00, Duration: 30 day, Stop date: 01/26/15 17 :09:00 Notes: (Same as: Benadryl) Start Date: 12/27/14 Stop Date: 01/08/15 Status: DiscontinuedfentaNYL 25 microgram, 0.5 mL, Route: IVP, Drug form: INJ, Q5Min, Dosing Weight 92.1, kg , PRN Pain Score 4-6,Start date: 12/27/14 17:10:00, Duration: 4 doses or times, Stop date: Limited # of times Notes: (Same as: Sublimaze) Preservative free. Start Date: 12/27/14 Stop Date: 01/08/15 Status: DiscontinuedfentaNYL 50 microgram, 1 mL, Route: IVP, Drug form: INJ, Q5Min, Dosing Weight 92.1, kg, PRN Pain Score 7-10, Start date: 12/27/14 17:10:00, Duration: 2 doses or times, Stop date: Limited # of times Notes: (Same as: Sublimaze) Preservative free. Start Date: 12/27/14 Stop Date: 01/08/15 Status: DiscontinuedFlomax 0.4 mg, 1 cap, Route: PO, Drug form: CAP, After Dinner, Dosing Weight 92.1, kg, Start date: 01/05/1517:00:00, Duration: 30 day, Stop date: 02/03/15 17:00:00 Notes: (Same As: Flomax) "Do Not Crush" Start Date: 01/05/15 Stop Date: 01/08/15 Status: Discontinuedflumazenil 0.2 mg, 2 mL, Route: IVP, Drug form: INJ, PRN, Dosing Weight 92.1, kg, PRN Benzodiazepine Reversal, Initial dose, Start date: 12/27/14 17:10:00, Duration: 30 day, Stop date: 01/26/15 17:09:00 Notes: (Same as: Romazicon) Start Date: 12/27/14 Stop Date: 01/08/15 Status: Discontinuedglucagon 1 mg, Route: IM, Drug form: PDR/INJ, PRN, Dosing Weight 92.1, kg, PRN Blood Glucose Results, Start date: 12/26/14 17:42:00, Duration: 30 day, Stop date: 17:41:00 Start Date: 12/26/14 Stop Date: 01/08/15 Status: DiscontinuedhydrALAZINE 20 mg, 1 mL, Route: IVP, Drug form: INJ, Q4H, Dosing Weight 92.1, kg, PRN Other -See Comment, Start date: 01/02/15 21:13:00, Stop date: 02/01/15 21:12:00, SBP > 170 | Other -See Comment Notes: (Same as: Apresoline)Push over 5 minutes Start Date: 01/02/15 Stop Date: 01/08/15 Status: Discontinuedinsulin aspart 4 unit, 0.04 mL, Route: SUB-Q, Drug form: SOLN, Bedtime, Dosing Weight 92.1, kg , PRN Blood Glucose Results, Start date: 12/26/14 17:42:00, Duration: 30 day, Stop date: 01/25/15 17:41:00 Notes: Roll in palms of hands gently; Do not shake vigorously. (Same as: NovoLOG)"single patient use only" Stable for 28 days at room temperature.Expires in days from Date Start Date: 12/26/14 Stop Date: 01/08/15 Status: Discontinuedinsulin aspart 5 unit, 0.05 mL, Route: SUB-Q, Drug form: SOLN, TID-Before Meals, Dosing Weight 92.1, kg, PRN Blood Glucose Results, Start date: 12/26/14 17:42:00, Duration: 30 day, Stop date: 01/25/15 17:41:00 Notes: Roll in palms of hands gently; Do not shake vigorously. (Same as: NovoLOG)"single patient use only" Stable for 28 days at room temperature.Expires in days from Date Start Date: 12/26/14 Stop Date: 01/08/15 Status: Discontinuedinsulin aspart 2 unit, 0.02 mL, Route: SUB-Q, Drug form: SOLN, Bedtime, Dosing Weight 92.1, kg , PRN Blood Glucose Results, Start date: 12/26/14 17:42:00, Duration: 30 day, Stop date: 01/25/15 17:41:00 Notes: Roll in palms of hands gently; Do not shake vigorously. (Same as: NovoLOG)"single patient use only" Stable for 28 days at room temperature.Expires in days from Date Start Date: 12/26/14 Stop Date: 01/08/15 Status: Discontinuedinsulin aspart 1 unit, 0.01 mL, Route: SUB-Q, Drug form: SOLN, Bedtime, Dosing Weight 92.1, kg , PRN Blood Glucose Results, Start date: 12/26/14 17:42:00, Duration: 30 day, Stop date: 01/25/15 17:41:00 Notes: Roll in palms of hands gently; Do not shake vigorously. (Same as: NovoLOG)"single patient use only" Stable for 28 days at room temperature.Expires in days from Date Start Date: 12/26/14 Stop Date: 01/08/15 Status: Discontinuedinsulin aspart 3 unit, 0.03 mL, Route: SUB-Q, Drug form: SOLN, Bedtime, Dosing Weight 92.1, kg , PRN Blood Glucose Results, Start date: 12/26/14 17:42:00, Duration: 30 day, Stop date: 01/25/15 17:41:00 Notes: Roll in palms of hands gently; Do not shake vigorously. (Same as: NovoLOG)"single patient use only" Stable for 28 days at room temperature.Expires in days from Date Start Date: 12/26/14 Stop Date: 01/08/15 Status: Discontinuedinsulin aspart 1 unit, 0.01 mL, Route: SUB-Q, Drug form: SOLN, TID-Before Meals, Dosing Weight 92.1, kg, PRN Blood Glucose Results, Start date: 12/26/14 17:42:00, Duration: 30 day, Stop date: 01/25/15 17:41:00 Notes: Roll in palms of hands gently; Do not shake vigorously. (Same as: NovoLOG)"single patient use only" Stable for 28 days at room temperature.Expires in days from Date Start Date: 12/26/14 Stop Date: 01/08/15 Status: Discontinuedinsulin aspart 4 unit, 0.04 mL, Route: SUB-Q, Drug form: SOLN, TID-Before Meals, Dosing Weight 92.1, kg, PRN Blood Glucose Results, Start date: 12/26/14 17:42:00, Duration: 30 day, Stop date: 01/25/15 17:41:00 Notes: Roll in palms of hands gently; Do not shake vigorously. (Same as: NovoLOG)"single patient use only" Stable for 28 days at room temperature.Expires in days from Date Start Date: 12/26/14 Stop Date: 01/08/15 Status: Discontinuedinsulin aspart 3 unit, 0.03 mL, Route: SUB-Q, Drug form: SOLN, TID-Before Meals, Dosing Weight 92.1, kg, PRN Blood Glucose Results, Start date: 12/26/14 17:42:00, Duration: 30 day, Stop date: 01/25/15 17:41:00 Notes: Roll in palms of hands gently; Do not shake vigorously. (Same as: NovoLOG)"single patient use only" Stable for 28 days at room temperature.Expires in days from Date Start Date: 12/26/14 Stop Date: 01/08/15 Status: Discontinuedinsulin aspart 2 unit, 0.02 mL, Route: SUB-Q, Drug form: SOLN, TID-Before Meals, Dosing Weight 92.1, kg, PRN Blood Glucose Results, Start date: 12/26/14 17:42:00, Duration: 30 day, Stop date: 01/25/15 17:41:00 Notes: Roll in palms of hands gently; Do not shake vigorously. (Same as: NovoLOG)"single patient use only" Stable for 28 days at room temperature.Expires in days from Date Start Date: 12/26/14 Stop Date: 01/08/15 Status: Discontinuedinsulin detemir 10 unit, 0.1 mL, Route: SUB-Q, Drug form: INJ, Bedtime, Dosing Weight 92.1, kg, Start date: 01/01/1521:00:00, Duration: 30 day, Stop date: 01/30/15 21:00:00 Notes: Same as [place] not hold insulin without contacting prescriber " single patient use only" Start Date: 01/01/15 Stop Date: 01/08/15 Status: Discontinuedinsulin isophane human recombinant 100 units/mL subcutaneous injection 10 unit, SUB-Q, Q12H, # 10 ml, 0 Refill(s) Start Date: 01/08/15 Status: OrderedInsulin regular 10 unit, Route: IVP, ONCE, Dosing Weight 100.9, kg, Priority: STAT, Start date: 12/26/14 14:06:00, Stop date: 12/26/14 14:06:00 Start Date: 12/26/14 Stop Date: 12/26/14 Status: DiscontinuedInsulin regular 6 unit, 0.06 mL, Route: IVP, Drug form: SOLN, ONCE, Dosing Weight 100.9, kg, Start date: 12/26/14 14:36:00, Stop date: 12/26/14 14:36:00 Notes: (Same as: Humulin R) Roll in palms of hands gently; Do not shake vigorously. "single patientuse only"(Restricted to patients requiring a dose > 60 units) Stable for 28 days at room temperatureExpires in days from ___ Date Start Date: 12/26/14 Stop Date: 12/26/14 Status: CompletedInsulin Syringes (U 100) 1 syr, SUB-Q, ONCALL, # 100 syr, 0 Refill(s) Start Date: 01/08/15 Status: OrderedKeflex 500 mg oral capsule 1,000 mg=2 cap, PO, BID, indefinate order, 0 Refill(s) Special Instructions: indefinate order Start Date: 12/26/14 Stop Date: 01/08/15 Status: Discontinuedlabetalol 20 mg, 4 mL, Route: IV, Drug form: INJ, Q4H, Dosing Weight 92.1, kg, PRN Other - See Comment, Start date: 01/02/15 21:13:00, Duration: 30 day, Stop date: 21:12:00, SBP > 165 Notes: (Same as: Normodyne, Trandate)Push over 2 minutes Give bolus over 2-3 minutes. Start Date: 01/02/15 Stop Date: 01/08/15 Status: DiscontinuedLevemir 12 unit, 0.12 mL, Route: SUB-Q, Drug form: INJ, Bedtime, Dosing Weight 92.1, kg , Start date: 12/29/14 21:00:00, Duration: 30 day, Stop date: 01/27/15 21:00:00 Notes: Same as [place] not hold insulin without contacting prescriber " single patient use only" Start Date: 12/29/14 Stop Date: 01/01/15 Status: DiscontinuedLevemir 8 unit, 0.08 mL, Route: SUB-Q, Drug form: INJ, Bedtime, Dosing Weight 92.1, kg, Start date: 12/28/1520:00:00, Duration: 30 day, Stop date: 01/26/15 21:00:00 Notes: Same as LevemirDo not hold insulin without contacting prescriber " single patient use only" Start Date: 12/28/14 Stop Date: 12/29/14 Status: Discontinuedlisinopril 20 mg, 1 tab, Route: PO, Drug form: TAB, Daily, Dosing Weight 92.1, kg, Start date: 12/31/14 9:00:00, Duration: 30 day, Stop date: 01/29/15 9:00:00 Notes: (Same as: Prinivil, Zestril) Start Date: 12/31/14 Stop Date: 01/03/15 Status: Discontinuedlisinopril 10 mg, 2 tab, Route: PO, Drug form: TAB, Daily, Dosing Weight 92.1, kg, Priority : NOW, Start date: 12/30/14 12:25:00, Duration: 30 day, Stop date: 01/29/15 9:00 :00 Notes: (Same as: Prinivil, Zestril) Start Date: 12/30/14 Stop Date: 12/31/14 Status: DiscontinuedLovenox 40 mg, 0.4 mL, Route: SUB-Q, Drug form: INJ, [id number], Dosing Weight 92.1, kg, Start date: 12/26/14 19:00:00, Duration: 30 day, Stop date: 01/24/15 13:00:00 Notes: (Same as: Lovenox) Start Date: 12/26/14 Stop Date: 01/08/15 Status: Discontinuedmeperidine 12.5 mg, 0.25 mL, Route: IVP, Drug form: INJ, Q30Min, Dosing Weight 92.1, kg, PRN Other -See Comment, For shivering, Start date: 12/27/14 17:10:00, Duration: 2 doses or times, Stop date: Limited # of times Notes: (Same as: Demerol) "Use Precaution in Elderly, Seizure disorders, and Renal impairment" Start Date: 12/27/14 Stop Date: 01/08/15 Status: DiscontinuedmetFORMIN 1000 mg oral tablet 1,000 mg=1 tab, PO, Daily, # 30 tab, 0 Refill(s) Start Date: 12/26/14 Stop Date: 01/08/15 Status: DiscontinuedmetFORMIN 1000 mg oral tablet 1,000 mg, 2 tab, Route: PO, Drug form: TAB, BID, Dosing Weight 92.1, kg, Priority: NOW, Start date: 01/01/15 12:01:00, Duration: 30 day, Stop date: 01/31 9:00:00 Notes: (Same as: Glucophage) Take with meal Start Date: 01/01/15 Stop Date: 01/02/15 Status: Discontinuedmetoprolol tartrate 100 mg, 1 tab, Route: PO, Drug form: TAB, [id number], Dosing Weight 92.1, kg, Start date: 01/07/15 12:00:00, Duration: 30 day, Stop date: 02/06/15 0:00:00 Notes: (Same as: Lopressor) Start Date: 01/07/15 Stop Date: 01/08/15 Status: Discontinuedmetoprolol tartrate 50 mg, 1 tab, Route: PO, Drug form: TAB, Q12H, Dosing Weight 92.1, kg, Start date: 01/03/15 21:00:00, Stop date: 02/02/15 9:00:00 Notes: (Same as: Lopressor) Start Date: 01/03/15 Stop Date: 01/07/15 Status: Discontinuedmetoprolol tartrate 50 mg oral tablet 50 mg=1 tab, PO, BID, # 60 tab, 1 Refill(s) Start Date: 01/08/15 Status: Orderedmorphine Sulfate 4 mg, 2 mL, Route: IVP, Drug form: INJ, Q5Min, Dosing Weight 92.1, kg, PRN Pain Score 7-10, Start date: 12/27/14 17:10:00, Duration: 3 doses or times, Stop date : Limited # of times Notes: (Same as:MORPhine Sulfate) Start Date: 12/27/14 Stop Date: 01/08/15 Status: Discontinuedmorphine Sulfate 2 mg, 1 mL, Route: IVP, Drug form: INJ, Q5Min, Dosing Weight 92.1, kg, PRN Pain Score 4-6, Start date: 12/27/14 17:10:00, Duration: 5 doses or times, Stop date : Limited # of times Notes: (Same as:MORPhine Sulfate) Start Date: 12/27/14 Stop Date: 01/08/15 Status: Discontinuedmorphine Sulfate 4 mg, 2 mL, Route: IVP, Drug form: INJ, Q3H, Dosing Weight 100.9, kg, PRN Pain Score 7-10, Start date: 12/26/14 17:44:00, Duration: 30 day, Stop date: 17:43:00 Notes: (Same as:MORPhine Sulfate) Start Date: 12/26/14 Stop Date: 01/08/15 Status: Discontinuedmultivitamin 1 tab, Route: PO, Drug Form: TAB, Dosing Weight 92.1, kg, Daily, Start date: 03/17 9:00:00, Duration: 30 day, Stop date: 02/04/15 9:00:00 Notes: (Same as:One Tab Daily, Tab-A-Porter + Beta Carotene) Give with food. Start Date: 01/06/15 Stop Date: 01/08/15 Status: Discontinuednaloxone 0.1 mg, 0.25 mL, Route: SUB-Q, Drug form: INJ, Q6H, Dosing Weight 92.1, kg, PRN Itching, Start date:12/27/14 17:10:00, Duration: 30 day, Stop date: 01/26/15 17: 09:00 Notes: Same as Narcan Start Date: 12/27/14 Stop Date: 01/08/15 Status: Discontinuednaloxone 0.04 mg, 0.1 mL, Route: IVP, Drug form: INJ, Q2MIN, Dosing Weight 92.1, kg, PRN Narcotic Reversal, Start date: 12/27/14 17:10:00, Duration: 8 doses or times, Stop date: Limited # of times Notes: Same as Narcan Start Date: 12/27/14 Stop Date: 01/08/15 Status: DiscontinuedNS (Bolus) IV 1,000 mL, 1,000 ml/hr, Infuse Over: 1 hr, Route: IV, 1,000, Drug form: INJ, ONCE , Priority: STAT, Dosing Weight 100.9 kg, Start date: 12/26/14 15:25:00, Duration: 1 doses or times, Stop date: 12/26/14 15:25:00 Start Date: 12/26/14 Stop Date: 12/26/14 Status: CompletedNS 1,000 mL 1,000 mL, Rate: 1,000 ml/hr, Infuse over: 1 hr, Route: IV, Dosing Weight 100.9 kg, Total Volume: 1,000, Start date: 12/26/14 13:48:00, Duration: 1 doses or times, Stop date: 12/26/14 14:47:00, Bolus Dose Special Instructions: Bolus Dose Start Date: 12/26/14 Stop Date: 12/26/14 Status: CompletedNS 1,000 mL 1,000 mL, Rate: 100 ml/hr, Infuse over: 10 hr, Route: IV, Dosing Weight 92.1 kg , Total Volume: 1,000, Start date: 01/08/15 12:10:00, Duration: 30 day, Stop date: 02/07/15 12:09:00 Start Date: 01/08/15 Stop Date: 01/08/15 Status: DiscontinuedNS 1,000 mL 1,000 mL, Rate: 125 ml/hr, Infuse over: 8 hr, Route: IV, Dosing Weight 92.1 kg, Total Volume: 1,000,Start date: 01/02/15 14:38:00, Duration: 30 day, Stop date: 02/01/15 14:37:00 Start Date: 01/02/15 Stop Date: 01/08/15 Status: Discontinuedondansetron 4 mg, 2 mL, Route: IVP, Drug form: INJ, ONCE, Dosing Weight 92.1, kg, PRN Nausea & Vomiting, Start date: 12/27/14 17:10:00 Notes: (Same as: Zofran) Start Date: 12/27/14 Stop Date: 01/08/15 Status: Discontinuedondansetron 4 mg, 2 mL, Route: IVP, Drug form: INJ, Q8H, Dosing Weight 92.1, kg, PRN Nausea & Vomiting, Start date: 12/26/14 17:44:00, Duration: 30 day, Stop date: 17:43:00 Notes: (Same as: Zofran) Start Date: 12/26/14 Stop Date: 01/08/15 Status: DiscontinuedOnglyza 2.5 mg oral tablet 2.5 mg=1 tab, PO, Daily, # 30 tab, 0 Refill(s) Start Date: 01/08/15 Status: OrderedOnglyza 5 mg oral tablet 5 mg=1 tab, PO, Daily, # 30 tab, 0 Refill(s) Start Date: 12/26/14 Stop Date: 01/08/15 Status: DiscontinuedoxyCODONE 5 mg, 1 tab, Route: PO, Drug form: TAB, Q4H, Dosing Weight 92.1, kg, PRN Pain Score 4-6, Start date:12/27/14 17:10:00, Duration: 30 day, Stop date: 01/26/15 17:09:00 Notes: (Same as: Roxicodone) Start Date: 12/27/14 Stop Date: 01/08/15 Status: DiscontinuedoxyCODONE 10 mg, 2 tab, Route: PO, Drug form: TAB, Q4H, Dosing Weight 92.1, kg, PRN Pain Score 7-10, Start date: 12/27/14 17:10:00, Duration: 30 day, Stop date: 17:09:00 Notes: (Same as: Roxicodone) Start Date: 12/27/14 Stop Date: 01/08/15 Status: Discontinuedpromethazine 12.5 mg, 0.5 mL, Route: IM, Drug form: INJ, ONCE, Dosing Weight 92.1, kg, PRN Nausea & Vomiting,Start date: 12/27/14 17:10:00 Notes: Do not give IV push. (Same as: Phenergan) Start Date: 12/27/14 Stop Date: 01/08/15 Status: DiscontinuedProtonix 40 mg, 1 tab, Route: PO, Drug form: ECTAB, Before Breakfast, Dosing Weight 92.1 , kg, Start date: 12/27/14 7:30:00, Duration: 30 day, Stop date: 01/25/15 7:30: 00 Notes: Tablet should not be chewed or crushed.(Same as: Protonix) Start Date: 12/27/14 Stop Date: 12/27/14 Status: DiscontinuedProtonix 40 mg, 1 tab, Route: PO, Drug form: ECTAB, Before Breakfast, Start date: 7:30:00, Duration:30 day, Stop date: 01/26/15 7:30:00 Notes: Tablet should not be chewed or crushed.(Same as: Protonix) Start Date: 12/28/14 Stop Date: 01/08/15 Status: DiscontinuedSaline Flush 0.9% 10 ml, Route: IVP, Drug Form: INJ, Dosing Weight 92.1, kg, PRN, PRN Line Flush, Start date: 12/26/1516:44:00, Duration: 30 day, Stop date: 01/25/15 17:43:00 Notes: (Same as: BD Posiflush) Start Date: 12/26/14 Stop Date: 01/08/15 Status: Discontinuedsimvastatin 10 mg oral tablet 10 mg=1 tab, PO, Bedtime, # 30 tab, 0 Refill(s) Start Date: 01/08/15 Status: OrderedSodium Chloride 0.9% (titrate) 250 mL 250 mL, Rate: call center associate for use with blood product administration, Dosing Weight 92.1, kg, Route: IV, Total Volume: 250, Start Date: 12/27/14 9:28:00, Duration: 30 day, Stop date: 01/26/15 9:27:00, Replace Every: 24 hr Start Date: 12/27/14 Stop Date: 01/08/15 Status: DiscontinuedSodium Chloride 0.9% IV 1,000 mL 1,000 mL, Rate: 125 ml/hr, Infuse over: 8 hr, Route: IV, Dosing Weight 92.1 kg, Total Volume: 1,000,Start date: 12/26/14 17:44:00, Duration: 30 day, Stop date: 01/25/15 17:43:00 Start Date: 12/26/14 Stop Date: 12/30/14 Status: Discontinuedtamsulosin 0.4 mg oral capsule 0.4 mg=1 cap, PO, After Dinner, # 30 cap, 0 Refill(s) Start Date: 01/08/15 Status: Orderedvancomycin 1.5 gm, 250 mL, Route: IVPB, Drug form: INJ, Q12H, Dosing Weight 100.9, kg, Start date: 12/27/14 2:00:00, Duration: 30 day, Stop date: 01/25/15 14:00:00 Notes: Same as: Vancocin-NS (premixed)Infusion rate< 1000 mg: infuse over 1 [id number] - 1500 mg: infuse over 1.5 [id number] - 2000 mg: infuse over 2 hours> 2001 mg: infuse over 2.5 hours Start Date: 12/27/14 Stop Date: 12/28/14 Status: Discontinuedvancomycin 1 gm, Route: IVPB, ONCE, Dosing Weight 100.9, kg, Priority: STAT, Start date: 13:12:00, Stop date: 12/26/14 13:12:00 Start Date: 12/26/14 Stop Date: 12/26/14 Status: Completedvancomycin 2 gm, 500 mL, Route: IVPB, Drug form: SOLN, Q12H, Dosing Weight 92.1, kg, Start date: 12/28/14 15:00:00, Duration: 30 day, Stop date: 01/27/15 3:00:00 Notes: Same as: Vancocin Infusion rate< 1000 mg: infuse over 1 [id number] - 1500 mg: infuse over 1.5 [id number] - 2000 mg: infuse over 2 hours> 2001 mg: infuse over 2.5 hours Start Date: 12/28/14 Stop Date: 01/02/15 Status: Discontinuedvancomycin 1 gm, Route: IVP, Q24H, Dosing Weight 100.9, kg, Start date: 12/26/14 18:00:00, Duration: 30 day, Stop date: 01/24/15 18:00:00 Start Date: 12/26/14 Stop Date: 12/26/14 Status: Deletedzinc sulfate 220 mg, 1 cap, Route: PO, Drug form: CAP, Daily, Dosing Weight 92.1, kg, Start date: 01/06/15 9:00:00, Duration: 30 day, Stop date: 02/04/15 9:00:00 Notes: (Zinc sulfate capsule) - 220 mg Zinc sulfate=50 mg elemental zinc Same as Zinc Sulfate Start Date: 01/06/15 Stop Date: 01/08/15 Status: DiscontinuedZosyn 3.375 gm, Route: IVPB, Drug form: PDR/INJ, Q6H, Dosing Weight 100.9, kg, Priority: STAT, Start date:12/26/14 17:44:00, Duration: 30 day, Stop date: 01/25 12:00:00 Start Date: 12/26/14 Stop Date: 12/26/14 Status: DeletedZosyn 3.375 gm, Route: IVPB, Drug form: PDR/INJ, ONCE, Dosing Weight 100.9, kg, Priority: STAT, Start date: 12/26/14 13:12:00, Stop date: 12/26/14 13:12:00 Start Date: 12/26/14 Stop Date: 12/26/14 Status: CompletedZosyn + Sodium Chloride 0.9% IV 100 mL 3.375 gm, Route: IVPB, Drug form: PDR/INJ, Q8H, Dosing Weight 100.9, kg, Start date: 12/26/14 16:00:00, Stop date: 01/25/15 14:00:00 Notes: (Same as: Zosyn) Dosing based on Piperacillin component Start Date: 12/26/14 Stop Date: 01/05/15 Status: DiscontinuedZosyn + Sodium Chloride 0.9% IV 100 mL 3.375 gm, Route: IVPB, [id number], Dosing Weight 92.1, kg, CrCl < 20 ml/min infuse over 4 hours, Start date: 01/05/15 17:00:00, Duration: 30 day, Stop date : 02/04/15 5:00:00 Notes: (Same as: Zosyn)Dosing based on Piperacillin component MEDICATION WASTE Product Size: 3375 mgProduct Wasted: ___ mg Start Date: 01/05/15 Stop Date: 01/06/15 Status: Discontinued Results BLOOD BANK RESULTS Most recent to oldest [Reference Range]: 1 2 3 ABO/Rh B POS *Unknown* (12/27/14 10:32 AM) Antibody Scrn Negative (12/27/14 10:32 AM) ELECTROLYTES Most recent to oldest 1 2 3 [Reference Range]: Sodium Lvl [135-145 mEq/L] 140 mEq/L 139 mEq/L 137 mEq/L (01/08/15 5:31 AM) (01/07/15 5:06 AM) (01/06/15:39 AM) Potassium Lvl [3.5-5.1 mEq/L] 4.2 mEq/L 4.1 mEq/L 4.0 mEq/L (01/08/15 5:31 AM) (01/07/15 5:06 AM) (01/06/15:39 AM) Chloride Lvl [95-109 mEq/L] 109 mEq/L 107 mEq/L 105 mEq/L (01/08/15 5:31 AM) (01/07/15 5:06 AM) (01/06/15 5:39 AM) CO2 [24-32 mEq/L] 20 mEq/L 21 mEq/L 24 mEq/L *LOW* *LOW* (01/06/15:39 AM) (01/08/15:31 AM) (01/07/15 5:06 AM) AGAP [10.0-20.0 mEq/L] 15.2 mEq/L 15.1 mEq/L 12.0 mEq/L (01/08/15 5:31 AM) (01/07/15 5:06 AM) (01/06/15 5:39 AM) CHEM PANEL Most recent to oldest 1 2 3 [Reference Range]: Creatinine Lvl [0.5-1.4 4.6 mg/dL 4.9 mg/dL 5.1 mg/dL mg/dL] *HI* *HI* *HI* (01/08/15:31 AM) (01/07/15 5:06 AM) (01/06/15:39 AM) eGFR 12 mL/min/1.73m2 1 12 mL/min/1.73m2 2 11 mL/min/1.73m2 3 *NA* *NA* *NA* (01/08/15:31 AM) (01/07/15 5:06 AM) (01/06/15:39 AM) BUN [7-22 mg/dL] 34 mg/dL 34 mg/dL 31 mg/dL *HI* *HI* *HI* (01/08/15:31 AM) (01/07/15 5:06 AM) (01/06/15:39 AM) B/C Ratio [6-25] 11 13 (12/27/14 5:26 AM) (12/26/14 1:36 PM) Glucose Lvl [70-99 mg/dL] 213 mg/dL 4 197 mg/dL 5 156 mg/dL 6 *HI* *HI* *HI* (01/08/15 5:31 AM) (01/07/15 5:06 AM) (01/06/15 5:39 AM) Total Protein [6.4-8.4 g/dL] 7.0 g/dL 6.9 g/dL 8.3 g/dL (12/31/14 5:30 AM) (12/27/14 5:26 AM) (12/26/14 1:36 PM) Albumin Lvl [3.5-5.0 g/dL] 2.2 g/dL 1.9 g/dL 2.0 g/dL *LOW* *LOW* *LOW* (01/05/15 4:55 AM) (12/31/14 5:30 AM) (12/27/14 5:26 AM) Globulin [2.0-4.0 g/dL] 5.1 g/dL 4.9 g/dL 5.9 g/dL *HI* *HI* *HI* (12/31/14 5:30 AM) (12/27/14 5:26 AM) (12/26/14 1:36 PM) A/G Ratio [0.7-1.6] 0.4 0.4 0.4 *LOW* *LOW* *LOW* (12/31/14 5:30 AM) (12/27/14 5:26 AM) (12/26/14 1:36 PM) Calcium Lvl [8.5-10.5 mg/dL] 8.0 mg/dL 8.0 mg/dL 8.1 mg/dL *LOW* *LOW* *LOW* (01/08/15 5:31 AM) (01/07/15 5:06 AM) (01/06/15 5:39 AM) Phosphorus [2.5-4.5 mg/dL] 4.3 mg/dL (01/05/15 4:55 AM) Magnesium Lvl [1.8-2.4 2.5 mg/dL 2.3 mg/dL 2.4 mg/dL mg/dL] *HI* (01/07/15 5:06 AM) (12/27/14 5:26 AM) (01/08/15 5:31 AM) ALT [0-65 unit/L] 51 unit/L 92 unit/L 67 unit/L (12/31/14 5:30 AM) *HI* *HI* (12/27/14 5:26 AM) (12/26/14 1:36 PM) AST [0-37 unit/L] 26 unit/L 72 unit/L 51 unit/L (12/31/14 5:30 AM) *HI* *HI* (12/27/14 5:26 AM) (12/26/14 1:36 PM) Alk Phos [39-136 unit/L] 104 unit/L 113 unit/L 106 unit/L (12/31/14 5:30 AM) (12/27/14 5:26 AM) (12/26/14 1:36 PM) Bili Total [0.2-1.3 mg/dL] 0.4 mg/dL 0.8 mg/dL 0.8 mg/dL (12/31/14 5:30 AM) (12/27/14 5:26 AM) (12/26/14 1:36 PM) Bili Direct [0.0-0.3 mg/dL] 0.1 mg/dL 0.2 mg/dL (12/31/14 5:30 AM) (12/27/14 5:26 AM) Bili Indirect [0.0-1.0 0.3 mg/dL mg/dL] (12/31/14 5:30 AM) Lactic Acid Lvl [0.5-2.2 1.9 mMol/L mMol/L] (12/26/14 1:36 PM) 1Result Comment: The eGFR is calculated using the CKD-EPI formula. In most young , healthy individualsthe eGFR will be >90 mL/min/1.73m2. The eGFR declines with age. An eGFR of 60-89 may be normal in some populations, particularly the elderly, for whom the CKD-EPI formula has not been extensively validated. Use of the eGFR is not recommended in the following populations: Individuals with unstable creatinine concentrations, including patients and those with serious co-morbid conditions. Patients with extremes in muscle mass or diet. The data above are obtained from the National Kidney Disease Education Program ( NKDEP) which additionally recommends that when the eGFR is used in patients with extremes of body mass index for purposesof drug dosing, the eGFR should be multiplied by the estimated BMI.2Result Comment: The eGFR is calculated using the CKD-EPI formula. In most young, healthy individualsthe eGFR will be >90 mL/ min/1.73m2. The eGFR declines with age. An eGFR of 60-89 may be normal in some populations, particularly the elderly, for whom the CKD-EPI formula has not been extensively validated. Use of the eGFR is not recommended in the following populations: Individuals with unstable creatinine concentrations, including patients and those with serious co-morbid conditions. Patients with extremes in muscle mass or diet. The data above are obtained from the National Kidney Disease Education Program ( NKDEP) which additionally recommends that when the eGFR is used in patients with extremes of body mass index for purposesof drug dosing, the eGFR should be multiplied by the estimated BMI.3Result Comment: The eGFR is calculated using the CKD-EPI formula. In most young, healthy individualsthe eGFR will be >90 mL/ min/1.73m2. The eGFR declines with age. An eGFR of 60-89 may be normal in some populations, particularly the elderly, for whom the CKD-EPI formula has not been extensively validated. Use of the eGFR is not recommended in the following populations: Individuals with unstable creatinine concentrations, including patients and those with serious co-morbid conditions. Patients with extremes in muscle mass or diet. The data above are obtained from the National Kidney Disease Education Program ( NKDEP) which additionally recommends that when the eGFR is used in patients with extremes of body mass index for purposesof drug dosing, the eGFR should be multiplied by the estimated BMI.4Interpretive Data: Adult reference range values reflect the clinical guidelines of the [place] [employer].5Interpretive Data: Adult reference range values reflect the clinical guidelines of the [place] [employer].6Interpretive Data: Adult reference range values reflect the clinical guidelines of the [place] [employer].CARDIAC ENZYMES Most recent to oldest [Reference Range]: 1 2 3 Total CK [12-191 unit/L] 49 unit/L (01/06/15 12:40 PM) LIPIDS Most recent to oldest [Reference Range]: 1 2 3 CHD Risk [4.00-7.30] 6.38 (12/27/14 5:26 AM) Chol [<=199 mg/dL] 83 mg/dL (12/27/14 5:26 AM) Trig [<=149 mg/dL] 105 mg/dL (12/27/14 5:26 AM) HDL [>=61 mg/dL] 13 mg/dL *LOW* (12/27/14 5:26 AM) LDL (Calculated) [<=99 mg/dL] 49 mg/dL (12/27/14 5:26 AM) VLDL 21 *NA* (12/27/14 5:26 AM) SPECIAL CHEMISTRY Most recent to oldest [Reference Range]: 1 2 3 Hgb A1C [<=5.6 %] 9.2 % *HI* (12/27/14 5:26 AM) TOXICOLOGY Most recent to oldest [Reference Range]: 1 2 3 Vanco Tr TND [id number] *NA* *NA* (12/30/14 2:41 AM) (12/28/14 1:23 PM) Vanco Tr 16.0 ug/ml 7 10.5 ug/ml 8 *NA* *NA* (12/30/14 2:41 AM) (12/28/14 1:23 PM) 7Interpretive Data: Therapeutic Range: Trough: 10 - 20 ug/mL Peak: 20 - 40 ug/mL Potential Toxicity: >80 ug/sP4Kejcuiotouor Data: Therapeutic Range: Trough: 10 - 20 ug/mL Peak: 20 - 40 ug/mL Potential Toxicity: >80 ug/mLURINE CHEM Most recent to oldest [Reference Range]: 1 2 3 U Creatinine 50.2 mg/dL 9 31.0 mg/dL 10 *NA* *NA* (01/06/15 12:07 AM) (01/04/15 6:17 PM) U Protein 16.1 mg/dL 11 *NA* (01/06/15 12:07 AM) U Prot/Creat 0.3 *NA* (01/06/15 12:07 AM) U Sodium 60 mEq/L 12 *NA* (01/04/15 6:17 PM) U Eos [None Seen] None Seen (01/04/15 6:17 PM) 9Interpretive Data: No established reference ranges.10Interpretive Data: No established reference ranges.11Interpretive Data: No established reference ranges.12Interpretive Data: No established reference ranges.URINE AND STOOL Most recent to oldest [Reference Range]: 1 2 3 UA Turbidity [Clear] Clear Clear (01/06/15 5:17 PM) (01/04/15 6:17 PM) UA Color [Yellow] Yellow Yellow *NA* *NA* (01/06/15 5:17 PM) (01/04/15 6:17 PM) UA pH [5.0-8.0] 5.5 6.0 (01/06/15 5:17 PM) (01/04/15 6:17 PM) UA Spec Grav [<=1.030] <=1.005 <=1.005 *NA* *NA* (01/06/15 5:17 PM) (01/04/15 6:17 PM) UA Glucose [Negative] Negative Negative (01/06/15 5:17 PM) (01/04/15 6:17 PM) UA Blood [Negative] Trace Small *ABN* *ABN* (01/06/15 5:17 PM) (01/04/15 6:17 PM) UA Ketones [Negative] Negative Negative *NA* *NA* (01/06/15 5:17 PM) (01/04/15 6:17 PM) UA Protein [Negative] Negative Negative (01/06/15 5:17 PM) (01/04/15 6:17 PM) UA Urobilinogen [0.1-1.0 EU/dL] 0.2 EU/dL 0.2 EU/dL (01/06/15 5:17 PM) (01/04/15 6:17 PM) UA Bili [Negative] Negative Negative *NA* *NA* (01/06/15 5:17 PM) (01/04/15 6:17 PM) UA Leuk Est [Negative] Negative Negative (01/06/15 5:17 PM) (01/04/15 6:17 PM) UA Nitrite [Negative] Negative Negative (01/06/15 5:17 PM) (01/04/15 6:17 PM) UA WBC [None Seen /HPF] 0-2 /HPF 0-2 /HPF (01/06/15 5:17 PM) (01/04/15 6:17 PM) UA RBC [0-2 /HPF] 0-2 /HPF 0-2 /HPF (01/06/15 5:17 PM) (01/04/15 6:17 PM) UA Bacteria [None Seen /HPF] Occasional /HPF Occasional /HPF (01/06/15 5:17 PM) (01/04/15 6:17 PM) UA Sq Epi [Few /LPF] Rare /LPF Occasional /LPF (01/06/15 5:17 PM) (01/04/15 6:17 PM) Micro? Performed (01/06/15 5:17 PM) IMMUNOLOGY Most recent to oldest [Reference Range]: 1 2 3 LUIS [Negative] Positive *ABN* (01/06/15 12:40 PM) LUIS Titer [Negative] 1:40 *ABN* (01/06/15 12:40 PM) LUIS Interp Pattern appears speckled *NA* (01/06/15 12:40 PM) C3 Complement [88-201 mg/dL] 111 mg/dL (01/06/15 5:39 AM) C4 Complement [16-47 mg/dL] 33 mg/dL (01/06/15 5:39 AM) ASO [0-408 IU/mL] 57 IU/mL (01/06/15 5:39 AM) HEMATOLOGY Most recent to oldest 1 2 3 [Reference Range]: WBC [3.7-10.4 K/CMM] 9.1 K/CMM 9.1 K/CMM 9.5 K/CMM (01/06/15 12:40 PM) (01/05/15 4:55 AM) (12/31/14 5:30 AM) RBC [4.70-6.10 M/CMM] 3.63 M/CMM 3.47 M/CMM 3.64 M/CMM *LOW* *LOW* *LOW* (01/06/15 12:40 PM) (01/05/15 4:55 AM) (12/31/14 5:30 AM) Hgb [14.0-18.0 g/dL] 10.2 g/dL 9.7 g/dL 10.3 g/dL *LOW* *LOW* *LOW* (01/06/15 12:40 PM) (01/05/15 4:55 AM) (12/31/14 5:30 AM) Hct [42.0-54.0 %] 31.2 % 29.7 % 31.3 % *LOW* *LOW* *LOW* (01/06/15 12:40 PM) (01/05/15 4:55 AM) (12/31/14 5:30 AM) MCV [80.0-94.0 fL] 85.8 fL 85.7 fL 86.1 fL (01/06/15 12:40 PM) (01/05/15 4:55 AM) (12/31/14 5:30 AM) MCH [27.0-31.0 pg] 28.0 pg 27.9 pg 28.2 pg (01/06/15:40 PM) (01/05/15 4:55 AM) (12/31/14 5:30 AM) MCHC [32.0-36.0 g/dL] 32.6 g/dL 32.5 g/dL 32.8 g/dL (01/06/15 12:40 PM) (01/05/15 4:55 AM) (12/31/14 5:30 AM) RDW [11.5-14.5 %] 15.7 % 15.4 % 14.8 % *HI* *HI* *HI* (01/06/15 12:40 PM) (01/05/15 4:55 AM) (12/31/14 5:30 AM) Platelet [133-450 K/CMM] 277 K/CMM 285 K/CMM 385 K/CMM (01/06/15 12:40 PM) (01/05/15 4:55 AM) (12/31/14 5:30 AM) MPV [7.4-10.4 fL] 7.7 fL 7.1 fL 7.5 fL (01/06/15 12:40 PM) *LOW* (12/31/14 5:30 AM) (01/05/15 4:55 AM) Segs [45.0-75.0 %] 72.2 % 65.4 % 65.9 % (01/06/15 12:40 PM) (12/31/14 5:30 AM) (12/30/14 2:41 AM) Lymphocytes [20.0-40.0 %] 12.8 % 17.0 % 18.3 % *LOW* *LOW* *LOW* (01/06/15 12:40 PM) (12/31/14 5:30 AM) (12/30/14 2:41 AM) Monocytes [2.0-12.0 %] 11.4 % 12.7 % 12.3 % (01/06/15 12:40 PM) *HI* *HI* (12/31/14 5:30 AM) (12/30/14 2:41 AM) Eosinophils [0.0-4.0 %] 2.7 % 4.2 % 3.1 % (01/06/15 12:40 PM) *HI* (12/30/14 2:41 AM) (12/31/14 5:30 AM) Basophils [0.0-1.0 %] 0.9 % 0.7 % 0.4 % (01/06/15 12:40 PM) (12/31/14 5:30 AM) (12/30/14 2:41 AM) Segs-Bands # [1.5-8.1 K/CMM] 6.6 K/CMM 6.2 K/CMM 6.6 K/CMM (01/06/15 12:40 PM) (12/31/14 5:30 AM) (12/30/14 2:41 AM) Lymphocytes # [1.0-5.5 1.2 K/CMM 1.6 K/CMM 1.8 K/CMM K/CMM] (01/06/15 12:40 PM) (12/31/14 5:30 AM) (12/30/14 2:41 AM) Monocytes # [0.0-0.8 K/CMM] 1.0 K/CMM 1.2 K/CMM 1.2 K/CMM *HI* *HI* *HI* (01/06/15 12:40 PM) (12/31/14 5:30 AM) (12/30/14 2:41 AM) Eosinophils # [0.0-0.5 0.3 K/CMM 0.4 K/CMM 0.3 K/CMM K/CMM] (01/06/15 12:40 PM) (12/31/14 5:30 AM) (12/30/14 2:41 AM) Basophils # [0.0-0.2 K/CMM] 0.1 K/CMM 0.1 K/CMM 0.0 K/CMM (01/06/15 12:40 PM) (12/31/14 5:30 AM) (12/30/14 2:41 AM) RBC Morph Normal (12/26/14 1:36 PM) Plt Morph Normal (12/26/14 1:36 PM) Sed Rate [0-15 mm/hr] 113 mm/hr *HI* (01/06/15 12:40 PM) PT [12.0-14.7 seconds] 14.9 seconds 16.0 seconds 16.3 seconds *HI* *HI* *HI* (12/29/14 4:16 AM) (12/28/14 4:40 AM) (12/27/14 5:26 AM) INR [0.85-1.17] 1.16 13 1.27 14 1.30 15 (12/29/14 4:16 AM) *HI* *HI* (12/28/14 4:40 AM) (12/27/14 5:26 AM) 13Interpretive Data: RECOMMENDED RANGES FOR PROTIME INR: 2.0-3.0 for most medical and surgical thromboembolic states. 2.5-3.5 for artificial heart valves and recurrent embolism. INR SHOULD BE USED ONLY FOR PATIENTS ON STABLE ANTICOAGULANT THERAPY.14Interpretive Data: RECOMMENDED RANGES FOR PROTIME INR: 2.0-3.0 for most medical and surgical thromboembolic states. 2.5-3.5 for artificial heart valves and recurrent embolism. INR SHOULD BE USED ONLY FOR PATIENTS ON STABLE ANTICOAGULANT THERAPY.15Interpretive Data: RECOMMENDED RANGES FOR PROTIME INR: 2.0-3.0 for most medical and surgical thromboembolic states. 2.5-3.5 for artificial heart valves and recurrent embolism. INR SHOULD BE USED ONLY FOR PATIENTS ON STABLE ANTICOAGULANT THERAPY. Immunizations Vaccine Date Refusal Reason pneumococcal 23-valent vaccine 12/26/14 Patient Refuses Procedures Procedure Date Related Diagnosis Body Site [...]
--- OUTSIDE RECORDS SUMMARY | 2018-10-17 10:03 | XMS REPORT | Continuity of Care Document ---
:1950 Author Organization [facility] Care Team Providers Name Role Phone MD Nancy, Art Unavailable Unavailable Insurance Providers Payer name Policy type / Policy ID Covered alliance party ID Policy Godoy Coverage type *SELF PAY* SLIDING FEE SCHEDULE - DISCOUNT MEDICARE [place]: [employer] *SELF PAY* *SELF PAY* Encounters Encounter Performer Location Date Lab Report Art MD Nancy [facility] [place] Mar 28, 2015 Allergies, Adverse Reactions, Alerts Type Substance Reaction [...] 2 tablet daily Nov 12, 2014 Inactive AV60B-LPJ KEFLEX 500 MG CAPS 2 capsule 2 times a day Dec 12, 2014 Inactive METFORMIN HCL ER 500 MG 1-2 tablet 2x daily Nov 22, 2014 Inactive NO49W-MLJ KOMBIGLYZE XR 5-1000 MG 1 tablet daily Nov 12, 2014 Inactive [id number] TOTAL GLUCOSE CONTROL 500 MG 1 BY [...] 2014Mar 28, sodium, serum SODIUM 138 mmol/L [phone] Mar 28, potassium, serum POTASSIUM 4.4 mmol/L [...] Mar 28, cholesterol, serum CHOLESTEROL 137 mg/dl [phone] Mar 28, HDL cholesterol, HDL 37 mg/dl [...] Jan 16, sodium, serum SODIUM 140 mmol/L [phone] Jan 16, potassium, serum POTASSIUM 5.0 mmol/L 3.3-5.0 2014Jan 16, urea nitrogen, blood BUN 77 mg/dL 07-24 High 2014Jan 16, creatinine, serum CREATININE 4.07 mg/dL 0.46-1.20 High 2014Jan 16, hemoglobin A1C, HGBA1C 8.1 % 3.0-6.0 High 2014 blood, as % of total hemoglobin Mar 28, sodium, serum SODIUM 138 mmol/L [phone] Mar 28, potassium, serum POTASSIUM 4.4 mmol/L [...] 28, alanine SGPT (ALT) 15 U/L 11-43 2014 aminotransferase (SGPT), serum Mar 28, cholesterol, serum CHOLESTEROL 137 mg/dl [phone] Mar 28, HDL cholesterol, HDL 37 mg/dl 26-62 2014 serum Mar 28, LDL cholesterol, LDL 84 mg/dl 0-130 2014 serum Mar 28, thyroid stimulating TSH 2.79 0.34-5.60 2015 hormone, serum uIU/mL
--- OUTSIDE RECORDS SUMMARY | 2018-10-17 10:04 | XMS REPORT | Summary of Care ---
:1950 Author Organization [facility] Address [address] [place] [phone] Encounter HQ Mery_jose(FIN) [id number] Date(s): 02/22/18 - 02/23/[address] [address]- [phone] Vital Signs No data available for this section Problem List Condition Effective Dates Status Health [...] mellitus(Confirmed)8 Diabetic peripheral neuropathy9 03/28/15 Active Diabetic [id number] 03/28/15 Resolved Status post transmetatarsal Active amputation of left foot(Confirmed) HTN - Hypertension(Confirmed) Resolved Nrmdgcjxq15 11/27/12 Resolved Juvenile tobocrmnhzrjs04 04/14/15 Resolved Mixed hyperlipidemia(Confirmed) Active Foot neuralgia(Confirmed) Active Neurologic disorder associated with Resolved type 2 diabetes rcecdfyp84 Neuropathic pain(Confirmed) Resolved 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 Resolved Obesity(Confirmed) Active 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 Originally documented as SULFA.2headache Medications No data available for this section Results No data available for this section Immunizations Given and Recorded Vaccine Date Status Refusal Reason pneumococcal 23-valent vaccine1 08/18/17 Given influenza virus vaccine, inactivated2 08/31/16 Given pneumococcal 13-valent vaccine3 08/31/16 Given Not Given Vaccine Date Status Refusal Reason pneumococcal 23-valent vaccine 12/26/14 Not Given Patient Refuses 1Result Comment: given by akua elena tolerated well no adverse [id number] Comment: [facility]: [id number] No adverse reactions noted.3Result Comment: [facility]: [id number] No adverse reactions noted. Procedures Procedure Date [...]
--- OUTSIDE RECORDS SUMMARY | 2018-10-17 10:04 | XMS REPORT | Summary of Care ---
:1950 Author Organization [facility] Address [address] [place] [phone]- Encounter HQ Mery_jose(FIN) [id number] Date(s): 04/10/18 - 04/11/[address] [address]- [phone] Vital Signs No data available for this [...] mellitus(Confirmed)8 Diabetic peripheral neuropathy9 03/28/15 Active Diabetic vhpgyigebncyvk61 03/28/15 Resolved Status post transmetatarsal Active amputation of left foot(Confirmed) HTN - Hypertension(Confirmed) Resolved Edgkoedom35 11/27/12 Resolved Juvenile olzqlvltmigpg27 04/14/15 Resolved Mixed hyperlipidemia(Confirmed) Active Foot neuralgia(Confirmed) Active Neurologic disorder associated with Resolved type 2 diabetes Neuropathic pain(Confirmed) Resolved 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 Resolved gcoylijbzqz15 Obesity(Confirmed) Active Peripheral 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 Skin cancer(Confirmed) Resolved Type II diabetes mellitus Resolved uncontrolled(Confirmed)16 Urinary tract infectious urkdiwp26, 03/28/15 Active 18 1Data migrated from GE [...] oral capsule 300 mg=1 cap, PO, BID, # 180 cap, 1 Refill(s), Pharmacy: [id number] Start Date: 04/11/18 Status: Ordered Results No data available for this section Immunizations Given and Recorded Vaccine Date Status Refusal Reason pneumococcal 23-valent vaccine1 08/18/17 Given influenza virus vaccine, inactivated2 08/31/16 Given pneumococcal 13-valent vaccine3 08/31/16 Given Not Given Vaccine Date Status Refusal Reason pneumococcal 23-valent vaccine 12/26/14 Not Given Patient Refuses 1Result Comment: given by akua queenet tolerated well no adverse [id number] Comment: [facility]: [id number] No adverse reactions noted.3Result Comment: [facility]: [id number] No adverse reactions noted. Procedures Procedure Date [...]
--- OUTSIDE RECORDS SUMMARY | 2018-10-17 10:04 | XMS REPORT | Summary of Care ---
:1950 Author Name WILLIAN LA M.D. Address Unavailable Unavailable , Care Team Providers Name Role Phone WILLIAN AL M.D. Unavailable Unavailable Unavailable Unavailable Unavailable Functional Status Name Dates Details Functional status health issues are not documented Status: Name Dates Details Cognitive status health issues are not documented Status: Problems Name Dates Details Basal cell carcinoma (173.91, C44.91) Status: Active Diabetes mellitus (250.00, E11.9) Status: Active Neoplasm of uncertain behavior of skin (238.2, D48.5) Status: Active History of basal cell carcinoma (V10.83, Z85.828) Status: Active Medications Name Dates Details NovoLIN N SUSP Refills: 0 Active Vitamin C TABS Refills: 0 Active Vitamin B6 TABS Refills: 0 Active Vitamin B-12 TABS Refills: 0 Active Cinnamon TABS Refills: 0 Active Milk Thistle CAPS Refills: 0 Active Lutein TABS Refills: 0 Active Allergies and Adverse Reactions Name Dates Details sulfa (Allergy) Status: Active Milk (Allergy) Status: Active Procedures Procedure Dates Details History of Toe amputation Completed Immunization Name Dates Details Immunizations not documented Family History Name Dates Details Family history of basal cell carcinoma (BCC) (V16.8, Z80.8) Comments: Family History Status: Active Social History Name Dates Details - Status: Name Dates Details Never smoker Vital Signs Date Test Result Details No Known Vitals to report Results Date Description Value Details Results not documented Plan of Care Name Dates Details Planned Observations Planned Goals not documented Instructions Name Dates Details Instructions not documented Encounters Appointment; WILLIAN LA M.D. On: 28-Feb-2018 15:15 Encounter Diagnosis: Problem not documented
[2018-10-17 10:06] LABS: Urine Microscopic Reflex NO UMIC
[2018-10-17 10:06] LABS: Absolute Lymphocytes (CBC) 1.7 K/uL (0.7-4.9); Absolute Neutrophil 3.6 K/uL (1.8-8.0); Basophils % 0.3 % (0-1.3); Hematocrit 43.9 % (39.6-49.0); Lymphocytes % 26.8 % (15.3-44.8); MPV 8.3 fL (7.6-11.3); RBC Red Blood Cell Count 4.92 M/uL (4.33-5.43)
[2018-10-17 10:13] LABS: Potassium 4.6 mmol/L (3.5-5.1)
[2018-10-17] MEDS ORDERED: KETOROLAC 30 MG/ML INJ ONE (10:31)
[2018-10-17] MEDS ORDERED: EPHEDRINE SULF 50 MG/ML VIAL ONE (10:47)
[2018-10-17] MEDS ORDERED: MINERAL OIL, LITE 10 ML VIAL ONE ×2 (11:05→11:56)
[2018-10-17] MEDS ORDERED: Mastisol Adhesive Liq ONE (11:27)
--- NOTE | 2018-10-17 18:21 | EKG ---
Test Date: 2018-10-17 Test Time: 09:38:22 Pattern Perforating Machine Operator: TANISHA MEASUREMENT RESULTS: Intervals: Rate: 77 WA: 290 QRSD: 96 QT: 402 QTc: 454 [place]: P: 46 WA: 290 QRS: -48 T: 88 INTERPRETIVE STATEMENTS: Sinus rhythm with 1st degree AV block Left axis deviation Abnormal ECG No previous ECG available for comparison Electronically Signed On 10-17-18 18:19:27 NUCLEAR CHEMISTRY TECHNICIAN by Sam Klein
--- NOTE | 2018-10-20 09:53 | OP ---
Surgeon: Pj Russell MD Application Support Developer: Dao. Preoperative Diagnosis: Basal carcinoma of the left forearm, right and left ears. Postoperative Diagnosis: Basal carcinoma of the left forearm, right and left ears. Procedures Performed: Excision of basal carcinoma 5 cm from the left forearm with flap closure. Excision of a 4 cm basal carcinoma from the left ear with flap closure and split-thickness skin graft. Excision of basal carcinoma from the right ear 4.5 x 5 cm with skin graft closure. Anesthesia: General. Procedure In Detail: After satisfactory induction of general anesthesia, 1% Xylocaine with epinephrine was used to infiltrate the right and left ear and the left forearm. The face was then prepped with Betadine scrub, Betadine paint , dry sterile drapes placed in the usual manner. The arm was elevated and Esmarch tourniquet inflated to 15 mmHg. The forearm was placed on the [place] table. Elliptical incision was made over the volar surface near the wrist. Incision was performed down to the fascia. The lesion was sent to pathology. Frozen section revealed basal cell carcinoma. The adjacent skin was advanced and closed with 4-0 Prolene vertical mattresses with simple sutures, dressed with Xeroform, 2 inch Kasia and Kerlix. The left ear was approached next. Elliptical incision was made and over the helix posteriorly. This was incised, it was basal cell carcinoma. Resection was passed over the septal portion that was re-resected and it was basically negative. The flap was undermined dorsally onto the posterior ear and advanced. About half to be closed directly by flap advancement with 4-0 Prolene simple sutures. The helical portion requireed skin graft . The rest was 1-1/2 cm and was closed with interrupted sutures of 4-0 Prolene, dressed with Xeroform, 4x4s. The right ear was approached. The lesion was quite large posteriorly extending and was excised. Basal cell carcinoma resection was not positive but we close to the margin. For this reason, additional anterior margin was taken with the periosteum and the cartilage. We then closed after hemostasis. Skin graft was harvested from left anterior lateral thigh .015 thickness_. The dorsum of the site and skin was held in place with cheyanne or of 4.2 cm. The pocket was closed and the skin dressing of Xeroform, and sponge was then stapled in place holding the ear. The patient tolerated the procedure well and returned to recovery. FRAN/JORDAN Voice ID: [id number] Report ID: [id number] DWIGHT
== END 2018-10-17 14:35 | disposition home or self-care (01) ==
LOC: OR 08:32
PROVIDERS: ATTEND Specialist
PROC: 09B10ZX Excision of Left External Ear, Open Approach, Diagnostic (ICD-10-PCS; 2018-10-17)
PROC: 09B Ear, Nose, Sinus, Excision (ICD-10-PCS; 2018-10-17)
PROC: 09R Ear, Nose, Sinus, Replacement (ICD-10-PCS; 2018-10-17)
PROC: 0HBJXZZ Excision of Left Upper Leg Skin, External Approach (ICD-10-PCS; 2018-10-17)
PROC: 09R Ear, Nose, Sinus, Replacement (ICD-10-PCS; 2018-10-17)
PROC: 0JBH0ZX Excision of Left Lower Arm Subcutaneous Tissue and Fascia, Open Approach, Diagnostic (ICD-10-PCS; principal; 2018-10-17 10:00)
DX: C44.619 Basal cell carcinoma of skin of left upper limb, including shoulder (principal); C44.219 Basal cell carcinoma of skin of left ear and external auricular canal; C44.212 Basal cell carcinoma of skin of right ear and external auricular canal
CPT/HCPCS: 11646; 15135; 14060; 93005; 85025; 80048; 36415; 82962 ×2; 88331; 88332; 88305; 81003; J2704; J2250; J3010; J7030; J0690; J1100